=== PATIENT | male | born 1935 | race Caucasian/White ===

== ENCOUNTER 2017-10-13 10:38 | Inpatient (IN) ==
[2017-10-13] MEDS ORDERED: Ondansetron 4 MG/2 ML VIAL IVP PRN (13:55)
[2017-10-13] MEDS ORDERED: Naloxone 0.4 MG/ML INJ IVP PRN (13:55)
[2017-10-13] MEDS ORDERED: *HR* Metoprolol 5 MG/5 ML VIAL IVP PRN (13:55)
--- NOTE | 2017-10-13 14:16 | General Surg History&Physical ---
<RanjithSamantha Fady - Last Filed: 10/13/17 14:14> Date of Encounter: 10/13/17 Time of Encounter: 14:14 Assessment and Plan (1) Mass in rectum Current Visit: Yes Status: Acute The assessment and plan as outlined above was discussed with the patient and/or family members who expressed understanding and agreement. All questions were answered. CT abdomen and pelvis without IV; oral only contrast NPO serial labs serial abdominal exams IV fluids (2) Chronic kidney disease (CKD) Current Visit: Yes Status: Acute The assessment and plan as outlined above was discussed with the patient and/or family members who expressed understanding and agreement. All questions were answered. Stage III according to msot recent GFR. Most recent labs in [facility] with GFR of 46 and creatinine 1.48 (which appears close to his baseline) Will proceed with CT oral and rectal only given above. Serial labs Qualifiers: Chronic kidney disease stage: stage 3 (moderate) Qualified Code(s): N18.3 - Chronic kidney disease, stage 3 (moderate) (3) HTN, goal below 130/80 Current Visit: Yes Status: Acute The assessment and plan as outlined above was discussed with the patient and/or family members who expressed understanding and agreement. All questions were answered. Continue home meds. History of Present Illness Chief complaint: changes in bowel habits (constipationa nd diarrhea) HPI: Please see H&P from ECW. Hard copies placed on hard chart and medical records. Past Med Surg Social Fam HX - Past Medical History Medical history: hyperlipidemia, hypertension Psychiatric history: no psych history - Social History Smoking Status: Former smoker Smokeless Tobacco Status: No Alcohol use: none Drug use: none - Family History Mother Living Status: Age at : 83 Cause of : breast ca Hx Family Cancer: Yes (breast ca) Father Living Status: Age at : 57 Cause of : heart problems Hx Family Cardiac Disorders: Yes Medications and Allergies Lactobacillus Combination No.8 [Adult Probiotic] 1 cap PO DAILY 10/13/17 [ History] Polyethylene Glycol 3350 [MiraLAX Powder Bulk 17.9 Oz] 1 scoop PO DAILY [History] Pravastatin Sodium [Pravachol] 40 mg PO DAILY 10/13/17 [History] Ranitidine HCl [Zantac] 150 mg PO DAILY 10/13/17 [History] amLODIPine [Norvasc] 5 mg PO DAILY 10/13/17 [History] 3 Allergy/AdvReac Type Severity Reaction Status Date / Time Penicillins [PCN] Allergy Hives Verified 10/13/17 14:24 Review of Systems All systems PM: A 10-system review of systems was performed and is negative for pertinent findings except as documented above in the HPI. General Surgery Exam Initial Vital Signs Temp Pulse Resp BP Pulse Ox 97.6 F 80 16 165/73 97 10/13/17 14:02 10/13/17 14:02 10/13/17 14:02 10/13/17 14:02 10/13/17 14:02 Results - Labs All other labs normal. <Veronica Cannon - Last Filed: 10/14/17 05:51> Date of Encounter: 10/13/17 Assessment and Plan (1) Chronic kidney disease (CKD) Current Visit: Yes Status: Chronic The assessment and plan as outlined above was discussed with the patient and/or family members who expressed understanding and agreement. All questions were answered. Qualifiers: Chronic kidney disease stage: stage 3 (moderate) Qualified Code(s): N18.3 - Chronic kidney disease, stage 3 (moderate) (2) HTN, goal below 130/80 Current Visit: Yes Status: Chronic The assessment and plan as outlined above was discussed with the patient and/or family members who expressed understanding and agreement. All questions were answered. (3) Mass in rectum Current Visit: Yes Status: Acute The assessment and plan as outlined above was discussed with the patient and/or family members who expressed understanding and agreement. All questions were answered. discussed with patient and in office earlier today, patient having obstructive symptoms will plan CT chest/abd/pelvis and will do with oral and rectal contrast npo currently prn pain control gi/dvt prophylaxis will need tissue biopsy as well concerned due to obstructive symptoms patient will not be able to tolerate a bowel prep for an attempted colonoscopy await ct results History of Present Illness HPI: Mr. Prado is a 82 year old male with symptoms of rectal bleeding, rectal pressure, frequent incomplete stools daily, alternating diarrhea and constipation since this past July 2017. He has bright red blood per rectum with bm's. He has fecal leakage and incontinence since this past july. Patient without any previous colonoscopy. No [facility] colon/rectal cancer. Has only had about a 3-4 lb weight loss over the last few months, denies clothes fitting any differently. Denies abdominal pain, nausea or emesis. States tolerates meals without abdominal bloating, nausea or abdominal pain. No fevers, chills or night sweats. Past Med Surg Social Fam HX - Past Medical History Source: patient Medical history: GERD, hyperlipidemia, hypertension Psychiatric history: no psych history - Past Surgical History Surgical History: no surgical history Review of Systems All systems PM: reviewed and no additional remarkable complaints except as stated All systems PM: A 10-system review of systems was performed and is negative for pertinent findings except as documented above in the HPI. General Surgery Exam Initial Vital Signs Temp Pulse Resp BP Pulse Ox 97.6 F 80 16 165/73 97 10/13/17 14:02 10/13/17 14:02 10/13/17 14:02 10/13/17 14:02 10/13/17 14:02 - General physical appearance well nourished, no distress, no pain - Eyes PERRL, normal ocular movement - ENT normal mucosa, normocephalic - Neck no bruits, trachea midline - Respiratory normal expansion, clear to auscultation - Cardiovascular Cardiovascular exam: Present: RRR - Abdomen Abdomen general surgery: Present: bowel sounds present, soft, non tender, distended. Absent: guarding, rebound - Rectum Rectum: Present: other (palpable low rectal mass, nonmobile, friable with bleeding) - Integumentary Integumentary general surgery: Present: warm and dry, no abnormal pigmentation - Neurologic Present: CN 2-12 grossly intact - Musculoskeletal Present: normal gait, normal posture - Psychiatric Psychiatric general surgery: Present: A&Ox3, speech is normal Results - Labs 10/13/17 14:38 10/13/17 14:38 Abnormal lab results MPV 9.2 fL (9.4-12.4) L 10/13/17 14:38 Sodium 135 mEq/L (136-145) L 10/13/17 14:38 Est GFR (Non-Af Amer) 59 (> 60) L 10/13/17 14:38 Glucose 107 mg/dL (70-105) H 10/13/17 14:38 Diabetes panel 10/13/17 10/13/17 Range/Units 14:38 14:38 Sodium 135 L (136-145) mEq/L Potassium 3.9 (3.5-5.1) mEq/L Chloride 100 (98-107) mEq/L Carbon Dioxide 28 (23-29) mEq/L BUN 14 (8-23) mg/dL Creatinine 1.18 (0.70-1.30) mg/dL Glucose 107 H (70-105) mg/dL Calcium 9.3 (8.6-10.3) mg/dL AST 23 (13-39) Units/L ALT 14 (7-52) Units/L Alkaline Phosphatase 72 (34-104) Units/L Albumin 4.1 (3.5-5.7) g/dL Calcium panel 10/13/17 10/13/17 Range/Units 14:38 14:38 Calcium 9.3 (8.6-10.3) mg/dL Phosphorus 2.8 (2.7-4.5) mg/dL Albumin 4.1 (3.5-5.7) g/dL Pituitary panel 10/13/17 Range/Units 14:38 Sodium 135 L (136-145) mEq/L Potassium 3.9 (3.5-5.1) mEq/L Chloride 100 (98-107) mEq/L Carbon Dioxide 28 (23-29) mEq/L BUN 14 (8-23) mg/dL Creatinine 1.18 (0.70-1.30) mg/dL Glucose 107 H (70-105) mg/dL Calcium 9.3 (8.6-10.3) mg/dL Adrenal panel 10/13/17 10/13/17 Range/Units 14:38 14:38 Sodium 135 L (136-145) mEq/L Potassium 3.9 (3.5-5.1) mEq/L Chloride 100 (98-107) mEq/L Carbon Dioxide 28 (23-29) mEq/L BUN 14 (8-23) mg/dL Creatinine 1.18 (0.70-1.30) mg/dL Glucose 107 H (70-105) mg/dL Calcium 9.3 (8.6-10.3) mg/dL Total Bilirubin 0.9 (0.3-1.0) mg/dL AST 23 (13-39) Units/L ALT 14 (7-52) Units/L Alkaline Phosphatase 72 (34-104) Units/L Albumin 4.1 (3.5-5.7) g/dL All other labs normal. - Attending Attestation I have personally performed a face to face evaluation on this patient. I have reviewed and agree with the care plan. History and Exam by me shows:
[2017-10-13 14:54] LABS: Basophils % 0.6 %; Eosinophils # 0.1 K/mcL (0.0-0.6); Eosinophils % 1.6 %; Hematocrit 40.2 % (37.5-50.1); Hemoglobin 13.8 g/dL (12.9-16.9); Immature Granulocytes % 0.2 % (0-4); Lymphocytes % 18.8 %; Mean Corpuscular HGB Conc 34.3 g/dL (31.6-35.5); Mean Corpuscular Hemoglobin 32.8 pg (28.0-33.3); Mean Corpuscular Volume 95.5 fL (83.0-100.0); Mean Platelet Volume 9.2 fL (9.4-12.4); Monocytes # 0.6 K/mcL (0.0-1.3); Monocytes % 11.4 %; Neutrophils # 3.4 K/mcL (1.6-8.9); Platelet Count 251 K/mcL (140-400); Red Blood Count 4.21 M/mcL (4.19-5.50); Red Cell Distribution Width 12.5 % (11.5-14.5); Segmented Neutrophils % 67.4 %
[2017-10-13] MEDS: 0.9 % Sodium Chloride 1,000 ML IVC SCH (14:55)
[2017-10-13 14:56] LABS: Prothrombin Time 10.8 Seconds (9.4-12.1)
[2017-10-13 15:03] LABS: BUN/Creatinine Ratio 12 (6-26); Blood Urea Nitrogen 14 mg/dL (8-23); Calcium 9.3 mg/dL (8.6-10.3); Carbon Dioxide 28 mEq/L (23-29); Chloride 100 mEq/L (98-107); Glucose 107 mg/dL (70-105); Osmolality,Calculated 281 (280-300); Potassium 3.9 mEq/L (3.5-5.1); Sodium 135 mEq/L (136-145); eGFR For African Americans > 60 (> 60); eGFR For Non-African Americans 59 (> 60)
[2017-10-13 15:04] LABS: Albumin 4.1 g/dL (3.5-5.7); Albumin/Globulin Ratio 1.5 (1.1-2.2); Bilirubin,Direct 0.1 mg/dL (0.0-0.2); Bilirubin,Indirect 0.8 mg/dL (0.0-1.2); Bilirubin,Total 0.9 mg/dL (0.3-1.0); Globulin 2.8 g/dL (2.4-3.5); Magnesium 1.9 mg/dL (1.6-2.6); Phosphorous 2.8 mg/dL (2.7-4.5); Total Protein 6.9 g/dL (6.4-8.9)
[2017-10-13 15:39] LABS: Carcinoembryonic Antigen 4.4 ng/mL (Less than 5.0)
[2017-10-13] MEDS: *HR* Heparin 5,000 UNIT/ML VIAL SQ SCH (17:49)
[2017-10-13] MEDS: MORPHINE SUL Oral CONC 10 MG/0.5 ML ORAL.SYG SL PRN (20:22)
[2017-10-14] MEDS: *HR* Heparin 5,000 UNIT/ML VIAL SQ SCH ×2 (05:20→16:54)
[2017-10-14] MEDS: amLODIPine 5 MG TABLET PO SCH (07:35)
[2017-10-14] MEDS: Pantoprazole 40 MG VIAL IVP SCH (07:35)
[2017-10-14] MEDS: 0.9 % Sodium Chloride 1,000 ML IVC SCH (10:52)
[2017-10-14] MEDS ORDERED: *HR* Midazolam HCl 5 MG/5 ML VIAL IVP ONE (16:19)
[2017-10-14] MEDS ORDERED: *HR* FentaNYL (PF) 100 MCG/2 ML VIAL ONE (16:20)
[2017-10-14] MEDS ORDERED: *HR* Promethazine 25 MG/ML VIAL ONE (16:20)
[2017-10-14] MEDS ORDERED: Simethicone 40 MG/0.6 ML MLS IR ONE (16:34)
[2017-10-14] MEDS ORDERED: *HR* FentaNYL (PF) 100 MCG/2 ML VIAL IVP ONE (16:34)
[2017-10-14] MEDS ORDERED: *HR* Midazolam HCl 2 MG/2 ML VIAL IVP ONE (16:34)
--- NOTE | 2017-10-14 16:37 | Pre-Sedation Evaluation ---
Pre-sedation evaluation - Pre-sedation checklist Date of procedure: 10/14/17 Procedure: endoscopy Recent Vitals: Last Vital Signs Temp 98.1 F 10/14/17 16:19 Pulse 72 10/14/17 16:19 Resp 14 10/14/17 16:19 BP 155/66 10/14/17 16:19 Pulse Ox 95 10/14/17 16:19 H&P (including ROS) documented in medical record: Yes Previous reaction to sedatives/anesthetics: No Dietary Status: Clear fluids after Midnight Dentition: dentures removed ASA Classification *see protocol: CLASS III-Severe systemic disease Plan of Care: Pt appropriate candidate for procedure/moderate/conscious sedation , Risks/benefits of procedure/sedation discussed w/ patient/family
--- NOTE | 2017-10-14 17:09 | General Surgery Progress Note ---
Date of Encounter: 10/14/17 Time of Encounter: 17:06 - Assessment and Plan (1) Chronic kidney disease (CKD) Current Visit: Yes Status: Chronic monitor Cr Qualifiers: Chronic kidney disease stage: stage 3 (moderate) Qualified Code(s): N18.3 - Chronic kidney disease, stage 3 (moderate) (2) HTN, goal below 130/80 Current Visit: Yes Status: Chronic controlled, continue po meds (3) Mass in rectum Current Visit: Yes Status: Acute patient flex sig shows rectal mass down to anal verge essentially but bulk of tumor appears to be in rectum - circumferential, nearly obstructing CT report discussed with patient and family will plan diverting colostomy tuesday ok for clears until sat night Subjective Patient reports: no new complaints, tolerating liquids well, flatus, bowel movement (minimal) Objective Vital Signs - Last 8 Hours Temp Pulse Resp BP Pulse Ox 10/14/17 17:00 63 16 111/43 98 10/14/17 16:55 59 16 101/44 98 10/14/17 16:50 61 16 96/37 97 10/14/17 16:45 16 100/52 97 10/14/17 16:40 75 16 161/75 97 10/14/17 16:36 97.9 F 82 16 161/75 96 10/14/17 16:19 98.1 F 72 14 155/66 95 10/14/17 10:38 98.0 F 68 16 147/70 96 Intake and Output 10/14/17 10/14/17 10/14/17 07:59 15:59 23:59 Intake Total 120 / 120 1000 / 1000 Output Total 0 / 0 Balance 120 / 120 1000 / 1000 Intake: IV Fluids 1000 / 1000 0.9 % Sodium Chloride 1,000 ML 1000 / 1000 @ 50 mls/hr IVC .Q20H GARY Rx#: [id number] Oral 120 / 120 0 / 0 Output: Urine 0 / 0 Other: Meal Lunch Percent of Meal Consumed 0% # Bowel Movements 1 Weight 64.11 kg Patient Weight 10/14/17 23:59 Weight 64.11 kg - General physical appearance well developed, no distress - Eyes PERRL, normal ocular movement - ENT normal mucosa, normocephalic - Neck Neck exam: trachea midline - Respiratory normal expansion, normal respiratory effort - Abdomen Abdomen: Present: bowel sounds present, soft, non tender. Absent: guarding, rebound - Rectum other (see flex sig report) - Integumentary no rash - Neurologic CN 2-12 grossly intact - Musculoskeletal normal posture - Psychiatric oriented to time, oriented to person, oriented to place, speech is normal, memory intact - Labs 10/13/17 14:38 10/13/17 14:38 - VTE Documentation of Mechanical Device: Intermittent pneumatic compression device Consult Discharge Plan - Plan Referrals: Ranjith Lacey DO [Primary Care Provider] -
[2017-10-15] MEDS: 0.9 % Sodium Chloride 1,000 ML IVC SCH (05:25)
[2017-10-15] MEDS: *HR* Heparin 5,000 UNIT/ML VIAL SQ SCH ×2 (05:25→18:16)
--- NOTE | 2017-10-15 08:29 | Urology - Consult Note ---
Date of Encounter: 10/15/17 Time of Encounter: 08:27 - Assessment and Plan (1) Mass in rectum Current Visit: Yes Status: Acute Assessment and plan: I discussed with the patient the procedure that I would be performing tomorrow of cystoscopy with either bilateral ureteral catheter placements or stent placements. Patient was agreeable to this and an informed consent was obtained and placed in the chart. Patient and family member had no further questions Urology CN:HPI Consult date: 10/15/17 Reason for consult Urology: Other (rectal mass) Requesting physician: Veronica Cannon History of present illness: Aryan is an 82-year-old male with a history of kidney admitted secondary to almost completely obstructing rectal mass. Patient is known to me for undergoing cystoscopy for hematuria workup in 2012. This workup was negative. I was asked to evaluate the patient secondary to needing ureteral catheters for surgery tomorrow. Patient with no complaints from a urology standpoint at this time. He is voiding well. Past Med Surg Social Fam HX - Past Medical History Medical history: GERD, hyperlipidemia, hypertension Psychiatric history: no psych history - Past Surgical History Surgical History: no surgical history - Social History Smoking Status: Former smoker Smokeless Tobacco Status: No Alcohol use: none Drug use: none - Family History Mother Living Status: Age at : 83 Cause of : breast ca Hx Family Cancer: Yes (breast ca) Father Living Status: Age at : 57 Cause of : heart problems Hx Family Cardiac Disorders: Yes Medications and Allergies Lactobacillus Combination No.8 [Adult Probiotic] 1 cap PO DAILY 10/13/17 [ History] Polyethylene Glycol 3350 [MiraLAX Powder Bulk 17.9 Oz] 1 scoop PO DAILY [History] Pravastatin Sodium [Pravachol] 40 mg PO DAILY 10/13/17 [History] Ranitidine HCl [Zantac] 150 mg PO DAILY 10/13/17 [History] amLODIPine [Norvasc] 5 mg PO DAILY 10/13/17 [History] 3 Allergy/AdvReac Type Severity Reaction Status Date / Time Penicillins [PCN] Allergy Hives Verified 10/13/17 14:24 Review of Systems - Constitutional no chills, no fever(s) - EENT Nose, mouth and throat: no dizziness - Cardiovascular no chest pain - Respiratory no cough - Gastrointestinal abdominal pain - Musculoskeletal no back pain Exam Initial Vital Signs Temp Pulse Resp BP Pulse Ox 97.6 F 80 16 165/73 97 10/13/17 14:02 10/13/17 14:02 10/13/17 14:02 10/13/17 14:02 10/13/17 14:02 - General physical appearance Present: well developed - Eyes Present: normal ocular movement. Absent: icteric - Neck Present: no lymphadenopathy - Respiratory Present: normal respiratory effort - Cardiovascular Cardiovascular exam IM: RRR - Abdomen Abdomen: Present: soft. Absent: suprapubic tenderness Urology Results - Labs 10/13/17 14:38 10/13/17 14:38 Abnormal lab results MPV 9.2 fL (9.4-12.4) L 10/13/17 14:38 Sodium 135 mEq/L (136-145) L 10/13/17 14:38 Est GFR (Non-Af Amer) 59 (> 60) L 10/13/17 14:38 Glucose 107 mg/dL (70-105) H 10/13/17 14:38 All other labs normal. - Imaging CT scan - abdomen: image reviewed CT scan - pelvis: image reviewed Consult Discharge Plan - Plan Referrals: Ranjith Lacey DO [Primary Care Provider] -
[2017-10-15] MEDS: amLODIPine 5 MG TABLET PO SCH (09:20)
[2017-10-15] MEDS: Pantoprazole 40 MG VIAL IVP SCH (09:20)
--- NOTE | 2017-10-15 10:07 | General Surgery Progress Note ---
Date of Encounter: 10/15/17 Time of Encounter: 10:04 - Assessment and Plan (1) Mass in rectum Current Visit: Yes Status: Acute Plan for robotic diverting colostomy and mucous fistula. Case and scheduled for 10/16/17. Dr. Cannon is aware of the operation. Subjective Patient reports: other (I had a 15 minute conversation with the patient and his daughter. We discussed the potentials options in regards to surgery. I reinforced the idea that he needs diversion followed by neoadjuvant chemotherapy. He understands he had no further questions for me afterwards. His daughter was also understanding.) Objective Vital Signs - Last 8 Hours Temp Pulse Resp BP Pulse Ox 10/15/17 07:49 98.1 F 64 16 141/63 95 10/15/17 04:03 97.9 F 59 14 129/61 94 Intake and Output 10/14/17 10/15/17 10/15/17 23:59 07:59 15:59 Intake Total 0 / 0 1000 / 1000 1080 / 1080 Output Total 0 / 0 0 / 0 Balance 0 / 0 1000 / 1000 1080 / 1080 Intake: IV Fluids 1000 / 1000 0.9 % Sodium Chloride 1,000 ML 1000 / 1000 @ 50 mls/hr IVC .Q20H GARY Rx#: [id number] Oral 0 / 0 0 / 0 1080 / 1080 Output: Urine 0 / 0 0 / 0 Other: Meal NPO Percent of Meal Consumed 0% # Voids 1 # Bowel Movements 0 Weight 64.11 kg Patient Weight 10/15/17 23:59 Weight 64.11 kg - General physical appearance no distress - Eyes PERRL, normal ocular movement - Neck Neck exam: trachea midline - Respiratory normal expansion - Cardiovascular Cardiovascular exam: Present: RRR - Abdomen Abdomen: Present: soft, non tender - Neurologic CN 2-12 grossly intact, normal sensation - Labs 10/13/17 14:38 10/13/17 14:38 - VTE Documentation of Mechanical Device: Intermittent pneumatic compression device Consult Discharge Plan - Plan Referrals: Ranjith Lacey DO [Primary Care Provider] -
[2017-10-15] MEDS: MORPHINE SUL Oral CONC 10 MG/0.5 ML ORAL.SYG SL PRN ×3 (14:37→22:42)
[2017-10-16] MEDS: 0.9 % Sodium Chloride 1,000 ML IVC SCH ×3 (01:29→20:50)
[2017-10-16] MEDS: *HR* Heparin 5,000 UNIT/ML VIAL SQ SCH ×2 (04:58→18:35)
[2017-10-16] MEDS ORDERED: *HR* Enoxaparin 40 MG/0.4 ML SYRINGE SQ SCH (06:00)
--- NOTE | 2017-10-16 07:09 | Anesthesia Evaluation PreOp ---
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 Any Significant HX Other Medical History: Renal (CKD) Anesthesia History: No Prior Anesthetic Complications Alcohol Use: none Drug use: none Medications and Allergies Lactobacillus Combination No.8 [Adult Probiotic] 1 cap PO DAILY 10/13/17 [ History] Polyethylene Glycol 3350 [MiraLAX Powder Bulk 17.9 Oz] 1 scoop PO DAILY [History] Pravastatin Sodium [Pravachol] 40 mg PO DAILY 10/13/17 [History] Ranitidine HCl [Zantac] 150 mg PO DAILY 10/13/17 [History] amLODIPine [Norvasc] 5 mg PO DAILY 10/13/17 [History] 3 Allergy/AdvReac Type Severity Reaction Status Date / Time Penicillins [PCN] Allergy Hives Verified 10/13/17 14:24 - Meds/Allergy Pre-op Review Medications Reviewed: Yes Allergies Reviewed: Yes Beta Blockers on Current Med List: No Anesthesia Results - Labs 10/13/17 14:38 10/13/17 14:38 - Imaging EKG: pending Anesthesia Exam O2 Sat O2 Sat by Pulse Oximetry 94 O2 Sat by Pulse Oximetry 95 O2 Sat by Pulse Oximetry 96 O2 Sat by Pulse Oximetry 96 O2 Sat by Pulse Oximetry 97 O2 Sat by Pulse Oximetry 95 Vital Signs Temp Pulse Resp BP Pulse Ox 97.6 F 80 16 165/73 97 10/13/17 14:02 10/13/17 14:02 10/13/17 14:02 10/13/17 14:02 10/13/17 14:02 Height: 5'10 Weight: 141 lbs NPO (# of Hours): MN Pain Scale: 0 - HEENT Pupil (Motor): Pupils equal, EOMI Mallampati: II Teeth: Edentulous Oral Opening: Greater than 3 - RAILWAY SIGNAL OPERATOR LOC: Oriented RAILWAY SIGNAL OPERATOR Motor: Normal RUE, Normal LUE, Normal RLE, Normal LLE, Normal Face RAILWAY SIGNAL OPERATOR Sensory: Normal: RUE, LUE, RLE, LLE, Face - Cardiac Rhythm: Regular Murmur: None JVD: No Carotid Bruit: No - Pulmonary Breath Sounds: bilateral Clear Respiratory Effort: Symmetrical Anesthesia Assess/Plan ASA Score: 3 (HTN CKD Extreme of Age) Modified Francine Scale for Level of Consciousness: Cooperative, oriented, and tranquil Anesthetic Plan: General, Regional Monitoring Plan: Standard Monitors Recovery Plan: PACU (Discussed GA and TAP Block for post op pain,agrees to proceed)
[2017-10-16] MEDS ORDERED: Lidocaine -MPF 2% 2 ML VIAL ONE (07:22)
[2017-10-16] MEDS ORDERED: *HR* Rocuronium Bromide 50 MG/5 ML VIAL ONE (07:22)
[2017-10-16] MEDS ORDERED: Ondansetron 4 MG/2 ML VIAL ONE (07:22)
[2017-10-16] MEDS ORDERED: *HR* FentaNYL (PF) 100 MCG/2 ML VIAL ONE (07:22)
[2017-10-16] MEDS ORDERED: *HR* Propofol 200 MG/20 ML VIAL IVP ONE (07:22)
[2017-10-16] MEDS ORDERED: *HR* Succinylcholine 200 MG/10 ML VIAL IVP ONE (07:22)
[2017-10-16] MEDS ORDERED: Dexamethasone 4 MG/ML VIAL ONE (07:22)
[2017-10-16] MEDS ORDERED: Acetaminophen IV 1,000 MG/100 ML INFUS..BTL ONE (07:29)
[2017-10-16] MEDS ORDERED: Famotidine 20 MG/2 ML VIAL ONE (07:29)
[2017-10-16] MEDS ORDERED: Clindamycin 900 MG/50 ML 900 MG/50 ML IV.SOLN IVPB ONE (08:18)
[2017-10-16] MEDS ORDERED: EPHEDrine 50 MG/ML VIAL ONE (08:36)
[2017-10-16] MEDS ORDERED: Neostigmine Methylsulfate 3 MG/3 ML SYRINGE ONE (09:29)
--- NOTE | 2017-10-16 10:02 | Operative Note ---
Date of procedure: 10/16/17 Pre-op diagnosis: obstructing rectal mass Post-op diagnosis: same Procedure: Laparoscopic sigmoid colostomy with mucus fistula Complications: none immediate Anesthesia: GETA, local Local Anesthetics: 0.5% Sensorcaine HCL SubQ (cc) Surgeon: Veronica Cannon Was there an food and beverage assistant present: Yes Corporate Pilot: Ximena Chong Estimated blood loss (cc): 5 Specimen: peritoneal mets Condition: stable Disposition: PACU Procedure in Detail: Patient was brought into the operating suite and placed supine on the operating table. Sign in was performed and everyone was in agreement. Anesthesia was induced and patient was endotracheally intubated by anesthesia without incident. The bilateral arms were tucked. The abdomen was shaved and prepped and draped in the the usual sterile fashion. Time out was performed and everyone was in agreement. A supraumbilical incision was made through the skin into the subcutaneous tissue with an 11# blade. Towel clamps were placed on either side of the umbilicus for retraction and S retractors were used to dissect down to the anterior abdominal wall. A veress needle was placed through the incision and the abdomen was insufflated. The abdomen was entered with a 5 mm 0 degree lapaproscope on a 5 mm Xcel trocar. There was no obvious injury to bowel or bleeding under the entry point. A 5 mm trocar was placed in right lateral mid rectus position several cm below the level of the umbilicus. A third 5 mm port was placed in the right lower quadrant, each port was placed under direct visualization after the skin was incised with an 11# blade. 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 The liver itself did not have any obvious lesions and none were obvious on the mesentary or apparent bowel/colon. Several bites of what appeared to be metastatic disease on the peritoneum above the liver were taken with a laparoscopic grasper and put of to the back table for pathology. The sigmoid was located and was adhesed to the left lateral side wall. The adhesions were taken down with laparoscopic scissors. The sigmoid and left colon were taken down off the lateral side wall at the white line of tolt with the scissors and gentle blunt dissection. The left ureter was located and kept out of harms way. Once enough colon was free that it reached the anterior abdominal wall a stewart was placed on the colon. A circular incision through the skin in the left lower quadrant lateral rectus position below the umbilicus level was made with a 15# blade. The skin and subcutaneous tissue was excised with the bovie. The anterior fascia on the rectus was incised longitudinally and a cruciate incision was made in the fascia with the bovie. The rectus muscle was split with a George and the posterior rectus fascia was opened with the bovie and the opening elongated to accomodate about 2.5 finger breadths. A stewart was placed through the abdominal wall incision grasping the colon at the site previous marked with the laparoscopic stewart and the colon pulled up through the abdominal wall. An opening in the mesentery beneath the colon was made with a bovie and a george placed through this. The colon was transected with a linear SUKHJINDER 75 mm stapler using a blue load. The lower half of the mucus fistula was created first. A corner of the distal colon at the staple line was transected with curved chavarria scissors and using full thickness bites of the colon with 3-0 vicryl interrupted stitches, the inferior aspect of the distal colon was sutured to subcuticular skin. The proximal colon/colostomy was then created. Two babcocks were placed on the suture line and it was transected with heavy chavarria scissors. The colostomy was created using full thickness colon bites with 3-0 vicryl interrupted sutures secured circumferentially to the subcuticular skin. The inferior aspect of the colostomy was secured to the the proximal mucus fistula with full thickness bites using 3-0 vicryl interrupted stitches. The three ports sites were closed at the skin level with 4-0 monocryl interrupted stitches. 20cc 0.5% marcaine was injected into the subcutaneous tissue above each port site and the colostomy. Steri-strips were applied to the closed wounds. Allkare skin prep was applied around the colostomy/mucus fistula skin and the faceplate and bag were applied. All lap and instrument counts were correct at the the end of the case. The patient tolerated the procedure well. He was awoken by anesthesia and extubated and taken to pacu in stable condition.
[2017-10-16] MEDS ORDERED: *HR* Morphine 10 MG/ML VIAL ONE (10:24)
--- NOTE | 2017-10-16 10:39 | Anesthesia Evaluation Post Op ---
Date of Encounter: 10/16/17 Time of Encounter: 10:40 - Vital Signs Vital Signs: Vital Signs/O2 Sat/Glucose, Most Current Temp Pulse Resp BP Pulse Ox 10/16/17 10:32 97.6 F 66 18 127/63 97 10/16/17 10:22 69 20 130/67 98 10/16/17 10:12 71 20 130/65 98 10/16/17 10:02 97.9 F 76 18 132/67 94 - Lungs Lungs: Clear Ascult./Percussion - Airway Airway: Non-obstructed - Cardiovascular Regular Rate - Mental Status Mental Status: Alert & Oriented, Answers Appropriately - Pain Pain Scale: 2 - Nausea Vomiting Nausea Vomiting: Not Present - Hydration Hydration: Ice chips - Discharge PostOp Status: Transfer Patient to floor
[2017-10-16] MEDS ORDERED: Ondansetron 4 MG/2 ML VIAL IVP PRN (11:13)
[2017-10-16] MEDS ORDERED: *HR* Metoprolol 5 MG/5 ML VIAL IVP PRN (11:13)
[2017-10-16] MEDS ORDERED: Naloxone 0.4 MG/ML INJ IVP PRN (11:13)
[2017-10-16] MEDS: MORPHINE SUL Oral CONC 10 MG/0.5 ML ORAL.SYG SL PRN ×2 (11:20→18:34)
[2017-10-16] MEDS ORDERED: Levofloxacin 500 MG/100 ML 500 MG/100 ML BAG IVPB ONE ×2 (12:00→14:00)
[2017-10-16] MEDS: Acetaminophen 325 MG TABLET PO PRN ×2 (12:59→20:50)
[2017-10-17] MEDS: MORPHINE SUL Oral CONC 10 MG/0.5 ML ORAL.SYG SL PRN ×2 (02:39→08:42)
[2017-10-17] MEDS: Acetaminophen 325 MG TABLET PO PRN (05:53)
[2017-10-17] MEDS: *HR* Heparin 5,000 UNIT/ML VIAL SQ SCH ×2 (05:53→17:18)
[2017-10-17 07:35] LABS: Hematocrit 35.2 % (37.5-50.1); Immature Granulocytes % 0.4 % (0-4); Lymphocytes # 0.6 K/mcL (0.6-4.6); Lymphocytes % 6.8 %; Mean Corpuscular HGB Conc 34.1 g/dL (31.6-35.5); Mean Corpuscular Volume 96.7 fL (83.0-100.0); Mean Platelet Volume 9.6 fL (9.4-12.4); Monocytes # 0.8 K/mcL (0.0-1.3); Monocytes % 9.4 %; Neutrophils # 6.8 K/mcL (1.6-8.9); Platelet Count 217 K/mcL (140-400); Red Blood Count 3.64 M/mcL (4.19-5.50); Red Cell Distribution Width 12.7 % (11.5-14.5); Segmented Neutrophils % 83.4 %
[2017-10-17 07:49] LABS: BUN/Creatinine Ratio 11 (6-26); Blood Urea Nitrogen 11 mg/dL (8-23); Calcium 8.7 mg/dL (8.6-10.3); Carbon Dioxide 27 mEq/L (23-29); Chloride 103 mEq/L (98-107); Glucose 139 mg/dL (70-105); Osmolality,Calculated 282 (280-300); Potassium 4.3 mEq/L (3.5-5.1); Sodium 135 mEq/L (136-145); eGFR For African Americans > 60 (> 60); eGFR For Non-African Americans > 60 (> 60)
[2017-10-17] MEDS: Pantoprazole 40 MG VIAL IVP SCH (08:42)
[2017-10-17] MEDS: amLODIPine 5 MG TABLET PO SCH (08:42)
--- NOTE | 2017-10-17 10:01 | General Surgery Progress Note ---
<RanjithSamantha Fady - Last Filed: 10/17/17 10:13> Date of Encounter: 10/17/17 Time of Encounter: 10:00 - Assessment and Plan (1) Mass in rectum Current Visit: Yes Status: Acute Date of procedure: 10/16/17 Pre-op diagnosis: obstructing rectal mass Post-op diagnosis: same Procedure: Laparoscopic sigmoid colostomy with mucus fistula Complications: none immediate Anesthesia: GETA, local Surgeon: Veronica Cannon Estimated blood loss (cc): 5 POD #1 as above. He states his abdominal discomfort is overall controlled. He has been out of bed and ambulating in the room. Denies n/v. He reports that he has had a small amount of output in his appliance and a smear per rectum. He notes flatus in his appliance. His bowel sounds are active. Plan: continue supportive care and discomfort management. Will add scheduled ibuprofen for 2 days for discomfort management and continue PRN narcotics. Continue GRI and DVT prophylaxis continue Colace stop IV fluids regular diet ambulate is tolerated but at least 3 times daily consult to wound care for new colostomy teaching repeat a.m. labs (2) Chronic kidney disease (CKD) Current Visit: Yes Status: Chronic Stable. We'll continue to follow. Repeat a.m. labs Qualifiers: Chronic kidney disease stage: stage 3 (moderate) Qualified Code(s): N18.3 - Chronic kidney disease, stage 3 (moderate) (3) HTN, goal below 130/80 Current Visit: Yes Status: Chronic Resuming PO home meds. We'll continue to follow Subjective Patient reports: no new complaints, feels better, still having pain, pain is less, tolerating liquids well, tolerating a regular diet, voiding w/o difficulty , flatus, bowel movement (small amount of output reported from patient), afebrile Objective Vital Signs - Last 8 Hours Temp Pulse Resp BP Pulse Ox 10/17/17 07:48 98.9 F 65 16 116/52 96 10/17/17 04:04 98.3 F 65 18 117/65 96 Intake and Output 10/16/17 10/17/17 10/17/17 23:59 07:59 15:59 Intake Total 1480 / 1480 0 / 0 Output Total 100 / 100 300 / 300 Balance 1380 / 1380 -300 / -300 Intake: IV Fluids 1000 / 1000 0.9 % Sodium Chloride 1,000 ML 1000 / 1000 @ 50 mls/hr IVC .Q20H [facility] Rx#: [id number] Oral 480 / 480 0 / 0 Output: Urine 100 / 100 300 / 300 Other: Meal Dinner Percent of Meal Consumed 50% - General physical appearance well developed, well nourished, no distress - Neck Neck exam: no bruits, trachea midline, no venous distension - Cardiovascular Cardiovascular exam: Present: RRR, murmurs - Abdomen Abdomen: Present: bowel sounds present, soft, tender (Expected postoperative tenderness), wound (Left upper abdomen colostomy within normal limits. Small amount of bloody bowel sweat noted.) Hernia: none - Incision Incision: Present: clean and dry, intact - Integumentary no growths, no abnormal pigmentation - Neurologic CN 2-12 grossly intact, normal coordination, normal sensation - Musculoskeletal normal gait, normal posture - Psychiatric oriented to time, oriented to person, oriented to place, speech is normal - Labs 10/17/17 07:09 10/17/17 07:09 Diabetes panel 10/17/17 Range/Units 07:09 Sodium 135 L (136-145) mEq/L Potassium 4.3 (3.5-5.1) mEq/L Chloride 103 (98-107) mEq/L Carbon Dioxide 27 (23-29) mEq/L BUN 11 (8-23) mg/dL Creatinine 1.02 (0.70-1.30) mg/dL Glucose 139 H (70-105) mg/dL Calcium 8.7 (8.6-10.3) mg/dL Calcium panel 10/17/17 Range/Units 07:09 Calcium 8.7 (8.6-10.3) mg/dL Pituitary panel 10/17/17 Range/Units 07:09 Sodium 135 L (136-145) mEq/L Potassium 4.3 (3.5-5.1) mEq/L Chloride 103 (98-107) mEq/L Carbon Dioxide 27 (23-29) mEq/L BUN 11 (8-23) mg/dL Creatinine 1.02 (0.70-1.30) mg/dL Glucose 139 H (70-105) mg/dL Calcium 8.7 (8.6-10.3) mg/dL Adrenal panel 10/17/17 Range/Units 07:09 Sodium 135 L (136-145) mEq/L Potassium 4.3 (3.5-5.1) mEq/L Chloride 103 (98-107) mEq/L Carbon Dioxide 27 (23-29) mEq/L BUN 11 (8-23) mg/dL Creatinine 1.02 (0.70-1.30) mg/dL Glucose 139 H (70-105) mg/dL Calcium 8.7 (8.6-10.3) mg/dL - VTE Documentation of Mechanical Device: Intermittent pneumatic compression device Consult Discharge Plan - Plan Referrals: Ranjith Lacey DO [Primary Care Provider] - <Veronica Cannon - Last Filed: 10/17/17 14:01> Date of Encounter: 10/17/17 - Assessment and Plan (1) Chronic kidney disease (CKD) Current Visit: Yes Status: Chronic Qualifiers: Chronic kidney disease stage: stage 3 (moderate) Qualified Code(s): N18.3 - Chronic kidney disease, stage 3 (moderate) (2) HTN, goal below 130/80 Current Visit: Yes Status: Chronic (3) Mass in rectum Current Visit: Yes Status: Acute discussed with patient this is a rectal cancer - awaiting pathology biopsy results from flex sig last tuesday pod 1 colostomy and mucus fistula for obstructing rectal mass peritoneal mets biopsied tolerating diet continue colace and magnesium citrate for bowel clearance, patient is FOS prn pain control ambulate gi/dvt prophylaxis will consult oncology once have pathology results, if pt dc before will have appt made in followup for oncology Subjective Patient reports: bowel movement Narrative: no new complaints pain well controlled, less pelvic pain and discomfort decreased fecal incontinence tolerating regular diet passing flatus but no bm yet Objective Vital Signs - Last 8 Hours Temp Pulse Resp BP Pulse Ox 10/17/17 11:34 98.6 F 82 16 116/52 96 10/17/17 07:48 98.9 F 65 16 116/52 96 Intake and Output 10/16/17 10/17/17 10/17/17 23:59 07:59 15:59 Intake Total 1480 / 1480 0 / 0 480 / 480 Output Total 100 / 100 300 / 300 Balance 1380 / 1380 -300 / -300 480 / 480 Intake: IV Fluids 1000 / 1000 0.9 % Sodium Chloride 1,000 ML 1000 / 1000 @ 50 mls/hr IVC .Q20H [facility] Rx#: [id number] Oral 480 / 480 0 / 0 480 / 480 Output: Urine 100 / 100 300 / 300 Other: Meal Dinner Lunch Percent of Meal Consumed 50% 100% - General physical appearance well developed, well nourished, no distress - Eyes PERRL, normal ocular movement - ENT normal mucosa, normocephalic - Neck Neck exam: trachea midline - Respiratory normal expansion, normal respiratory effort - Cardiovascular Cardiovascular exam: Present: RRR - Abdomen Abdomen: Present: bowel sounds present, soft, tender, wound - Integumentary no growths, no abnormal pigmentation - Neurologic CN 2-12 grossly intact - Musculoskeletal normal posture - Psychiatric oriented to time, oriented to person, oriented to place, speech is normal, memory intact - Additional Exam colostomy and mucus fistula, congested, maroon in color, bloody bowel sweat present - Labs 10/17/17 07:09 10/17/17 07:09 Diabetes panel 10/17/17 Range/Units 07:09 Sodium 135 L (136-145) mEq/L Potassium 4.3 (3.5-5.1) mEq/L Chloride 103 (98-107) mEq/L Carbon Dioxide 27 (23-29) mEq/L BUN 11 (8-23) mg/dL Creatinine 1.02 (0.70-1.30) mg/dL Glucose 139 H (70-105) mg/dL Calcium 8.7 (8.6-10.3) mg/dL Calcium panel 10/17/17 Range/Units 07:09 Calcium 8.7 (8.6-10.3) mg/dL Pituitary panel 10/17/17 Range/Units 07:09 Sodium 135 L (136-145) mEq/L Potassium 4.3 (3.5-5.1) mEq/L Chloride 103 (98-107) mEq/L Carbon Dioxide 27 (23-29) mEq/L BUN 11 (8-23) mg/dL Creatinine 1.02 (0.70-1.30) mg/dL Glucose 139 H (70-105) mg/dL Calcium 8.7 (8.6-10.3) mg/dL Adrenal panel 10/17/17 Range/Units 07:09 Sodium 135 L (136-145) mEq/L Potassium 4.3 (3.5-5.1) mEq/L Chloride 103 (98-107) mEq/L Carbon Dioxide 27 (23-29) mEq/L BUN 11 (8-23) mg/dL Creatinine 1.02 (0.70-1.30) mg/dL Glucose 139 H (70-105) mg/dL Calcium 8.7 (8.6-10.3) mg/dL - Attending Attestation I have personally performed a face to face evaluation on this patient. I have reviewed and agree with the care plan. History and Exam by me shows:
[2017-10-17] MEDS: Ibuprofen 800 MG TABLET PO SCH ×2 (11:49→20:26)
[2017-10-17] MEDS: Levofloxacin 250 MG/50 ML 250 MG/50 ML BAG IVPB SCH (11:50)
--- NOTE | 2017-10-17 17:12 | Electrocardiograph Report ---
[place] [id number] Test Date: 2017-10-16 Pat Name: Aryan Prado Department: 115 Room: 3A Gender: M Pool Cleaner: MARIVEL : 1935 Requested By: Marck Pepe Order Number: [id number] Reading MD: Jose Avelar DO Measurements Intervals [place] Rate: 58 P: 24 GA: 157 QRS: 34 QRSD: 89 T: 77 QT: 394 QTc: 392 Interpretive Statements SINUS BRADYCARDIA MINIMAL VOLTAGE CRITERIA FOR LVH, CONSIDER NORMAL VARIANT Electronically Signed On 10-17-2017 17:11:02 EST by Jose Avelar DO
[2017-10-18] MEDS: Ibuprofen 800 MG TABLET PO SCH ×2 (05:56→14:53)
[2017-10-18] MEDS: *HR* Heparin 5,000 UNIT/ML VIAL SQ SCH ×2 (05:57→17:38)
[2017-10-18 06:44] LABS: Basophils % 0.3 %; Eosinophils # 0.3 K/mcL (0.0-0.6); Eosinophils % 4.3 %; Hematocrit 36.2 % (37.5-50.1); Hemoglobin 12.1 g/dL (12.9-16.9); Immature Granulocytes % 0.3 % (0-4); Lymphocytes # 0.9 K/mcL (0.6-4.6); Lymphocytes % 12.8 %; Mean Corpuscular HGB Conc 33.4 g/dL (31.6-35.5); Mean Corpuscular Hemoglobin 32.5 pg (28.0-33.3); Mean Corpuscular Volume 97.3 fL (83.0-100.0); Mean Platelet Volume 9.8 fL (9.4-12.4); Monocytes # 0.7 K/mcL (0.0-1.3); Monocytes % 9.2 %; Neutrophils # 5.2 K/mcL (1.6-8.9); Platelet Count 233 K/mcL (140-400); Red Blood Count 3.72 M/mcL (4.19-5.50); Red Cell Distribution Width 13.1 % (11.5-14.5); Segmented Neutrophils % 73.1 %
[2017-10-18 06:57] LABS: BUN/Creatinine Ratio 15 (6-26); Blood Urea Nitrogen 17 mg/dL (8-23); Calcium 8.8 mg/dL (8.6-10.3); Carbon Dioxide 30 mEq/L (23-29); Chloride 101 mEq/L (98-107); Glucose 93 mg/dL (70-105); Osmolality,Calculated 281 (280-300); Potassium 4.6 mEq/L (3.5-5.1); Sodium 135 mEq/L (136-145); eGFR For African Americans > 60 (> 60); eGFR For Non-African Americans > 60 (> 60)
[2017-10-18] MEDS: Pantoprazole 40 MG VIAL IVP SCH (09:09)
[2017-10-18] MEDS: amLODIPine 5 MG TABLET PO SCH (09:09)
--- NOTE | 2017-10-18 11:54 | General Surgery Progress Note ---
<Samantha Kasper - Last Filed: 10/18/17 11:52> Date of Encounter: 10/18/17 Time of Encounter: 11:15 - Assessment and Plan (1) Mass in rectum Current Visit: Yes Status: Acute Date of procedure: 10/16/17 Pre-op diagnosis: obstructing rectal mass Post-op diagnosis: same Procedure: Laparoscopic sigmoid colostomy with mucus fistula Complications: none immediate Anesthesia: GETA, local Surgeon: Veronica Cannon Estimated blood loss (cc): 5 POD #2 as above. He states his abdominal discomfort remains overall controlled. He has been out of bed and ambulating in the room, but not the hallway. Denies n /v. He reports that he has had a small amount of output in his appliance and a smear per rectum yesterday. He reports no changes or output today. He again notes flatus in his appliance. His bowel sounds are active. Plan: continue supportive care and discomfort management. Will add scheduled ibuprofen for 2 days for discomfort management and continue PRN narcotics. Continue GRI and DVT prophylaxis continue Colace Repeat mag citrate stop IV fluids continue regular diet ambulate as tolerated but at least 3 times daily; encouraged patient to ambulate in hallways at least TID consult to wound care for new colostomy teaching peritoneal mets biopsied (will consult oncology once have pathology results, if pt dc before will have appt made in followup for oncology) repeat a.m. labs (2) Chronic kidney disease (CKD) Current Visit: Yes Status: Chronic Stable. We'll continue to follow. Repeat a.m. labs Qualifiers: Chronic kidney disease stage: stage 3 (moderate) Qualified Code(s): N18.3 - Chronic kidney disease, stage 3 (moderate) (3) HTN, goal below 130/80 Current Visit: Yes Status: Chronic Resuming PO home meds. We'll continue to follow Subjective Patient reports: still having pain, pain is less, tolerating liquids well, flatus, no bowel movement Narrative: Reports feeling "full and tight" in the abdomen. Has walked in room, but has not walked in hallway stating, "I just didn't really want to walk out there." Nice nausea or vomiting. Objective Vital Signs - Last 8 Hours Temp Pulse Resp BP Pulse Ox 10/18/17 11:11 97.5 F L 63 16 132/66 98 10/18/17 08:41 98.3 F 74 16 130/69 97 10/18/17 04:36 98.3 F 68 16 129/71 94 Intake and Output 10/17/17 10/18/17 10/18/17 23:59 07:59 15:59 Intake Total 240 / 240 240 / 240 Output Total 875 / 875 575 / 575 Balance -635 / -635 -575 / -575 240 / 240 Intake: Oral 240 / 240 240 / 240 Output: Urine 875 / 875 575 / 575 Stool 0 / 0 0 / 0 Other: Meal Dinner Breakfast Percent of Meal Consumed 100% 95% Weight 67.7 kg Patient Weight 10/18/17 23:59 Weight 67.7 kg - General physical appearance no distress, no pain (Mild pain with activity) - Eyes normal ocular movement - ENT atraumatic, normocephalic - Neck Neck exam: trachea midline, no venous distension - Respiratory normal expansion, normal respiratory effort, clear to auscultation - Cardiovascular Cardiovascular exam: Present: RRR - Abdomen Abdomen: Present: bowel sounds present, tympanic, tender, wound (maroon liquid ( bowel sweat noted in ostomy bag); Stoma is pink and moist.). Absent: soft ( Mild firmness) Hernia: none - Incision Incision: Present: clean and dry, intact - Integumentary no abnormal pigmentation - Neurologic normal coordination, normal sensation - Musculoskeletal normal gait, normal posture - Psychiatric oriented to time, oriented to person, oriented to place, speech is normal, memory intact - Labs 10/18/17 05:55 10/18/17 05:55 Diabetes panel 10/18/17 Range/Units 05:55 Sodium 135 L (136-145) mEq/L Potassium 4.6 (3.5-5.1) mEq/L Chloride 101 (98-107) mEq/L Carbon Dioxide 30 H (23-29) mEq/L BUN 17 (8-23) mg/dL Creatinine 1.10 (0.70-1.30) mg/dL Glucose 93 (70-105) mg/dL Calcium 8.8 (8.6-10.3) mg/dL Calcium panel 10/18/17 Range/Units 05:55 Calcium 8.8 (8.6-10.3) mg/dL Pituitary panel 10/18/17 Range/Units 05:55 Sodium 135 L (136-145) mEq/L Potassium 4.6 (3.5-5.1) mEq/L Chloride 101 (98-107) mEq/L Carbon Dioxide 30 H (23-29) mEq/L BUN 17 (8-23) mg/dL Creatinine 1.10 (0.70-1.30) mg/dL Glucose 93 (70-105) mg/dL Calcium 8.8 (8.6-10.3) mg/dL Adrenal panel 10/18/17 Range/Units 05:55 Sodium 135 L (136-145) mEq/L Potassium 4.6 (3.5-5.1) mEq/L Chloride 101 (98-107) mEq/L Carbon Dioxide 30 H (23-29) mEq/L BUN 17 (8-23) mg/dL Creatinine 1.10 (0.70-1.30) mg/dL Glucose 93 (70-105) mg/dL Calcium 8.8 (8.6-10.3) mg/dL - VTE Documentation of Mechanical Device: Intermittent pneumatic compression device Consult Discharge Plan - Plan Referrals: Ranjith Lacey DO [Primary Care Provider] - <Veronica Cannon - Last Filed: 10/18/17 22:09> Date of Encounter: 10/18/17 - Assessment and Plan (1) Chronic kidney disease (CKD) Current Visit: Yes Status: Chronic Qualifiers: Chronic kidney disease stage: stage 3 (moderate) Qualified Code(s): N18.3 - Chronic kidney disease, stage 3 (moderate) (2) HTN, goal below 130/80 Current Visit: Yes Status: Chronic (3) Mass in rectum Current Visit: Yes Status: Acute (4) 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 Current Visit: Yes Status: Chronic pathology results noted tonight, discussed with patient and daughter in law oncology consulted and spoke with Dr Washington still not passing stools, will start clears and bowel prep in am pain controlled colostomy with mucus fistula Subjective Patient reports: still having pain, pain is less, tolerating a regular diet, flatus, no bowel movement Objective Vital Signs - Last 8 Hours Temp Pulse Resp BP Pulse Ox 10/18/17 19:26 97.3 F L 76 15 170/68 96 10/18/17 15:54 97.4 F L 66 16 148/73 96 Intake and Output 10/18/17 10/18/17 10/18/17 07:59 15:59 23:59 Intake Total 240 / 240 360 / 360 Output Total 575 / 575 0 / 0 Balance -575 / -575 240 / 240 360 / 360 Intake: Oral 240 / 240 360 / 360 Output: Urine 575 / 575 0 / 0 Stool 0 / 0 Other: Meal Breakfast Dinner Percent of Meal Consumed 95% 90% Weight 67.7 kg Patient Weight 10/18/17 23:59 Weight 67.7 kg - General physical appearance no distress, no pain - Eyes PERRL, normal ocular movement - ENT normal mucosa, normocephalic - Neck Neck exam: trachea midline, no venous distension - Respiratory normal expansion, normal respiratory effort - Cardiovascular Cardiovascular exam: Present: RRR - Abdomen Abdomen: Present: bowel sounds present, soft, tender, wound - Incision Incision: Present: clean and dry, intact - Integumentary no abnormal pigmentation - Neurologic normal coordination, normal sensation - Musculoskeletal normal posture - Psychiatric oriented to time, oriented to person, memory intact - Labs 10/18/17 05:55 10/18/17 05:55 Diabetes panel 10/18/17 Range/Units 05:55 Sodium 135 L (136-145) mEq/L Potassium 4.6 (3.5-5.1) mEq/L Chloride 101 (98-107) mEq/L Carbon Dioxide 30 H (23-29) mEq/L BUN 17 (8-23) mg/dL Creatinine 1.10 (0.70-1.30) mg/dL Glucose 93 (70-105) mg/dL Calcium 8.8 (8.6-10.3) mg/dL Calcium panel 10/18/17 Range/Units 05:55 Calcium 8.8 (8.6-10.3) mg/dL Pituitary panel 10/18/17 Range/Units 05:55 Sodium 135 L (136-145) mEq/L Potassium 4.6 (3.5-5.1) mEq/L Chloride 101 (98-107) mEq/L Carbon Dioxide 30 H (23-29) mEq/L BUN 17 (8-23) mg/dL Creatinine 1.10 (0.70-1.30) mg/dL Glucose 93 (70-105) mg/dL Calcium 8.8 (8.6-10.3) mg/dL Adrenal panel 10/18/17 Range/Units 05:55 Sodium 135 L (136-145) mEq/L Potassium 4.6 (3.5-5.1) mEq/L Chloride 101 (98-107) mEq/L Carbon Dioxide 30 H (23-29) mEq/L BUN 17 (8-23) mg/dL Creatinine 1.10 (0.70-1.30) mg/dL Glucose 93 (70-105) mg/dL Calcium 8.8 (8.6-10.3) mg/dL - Attending Attestation I have personally performed a face to face evaluation on this patient. I have reviewed and agree with the care plan. History and Exam by me shows:
[2017-10-18] MEDS: Levofloxacin 250 MG/50 ML 250 MG/50 ML BAG IVPB SCH (14:54)
[2017-10-18] MEDS: Acetaminophen 325 MG TABLET PO PRN (22:22)
[2017-10-19 06:13] LABS: Eosinophils % 8.9 %; Hemoglobin 11.5 g/dL (12.9-16.9); Immature Granulocytes % 0.2 % (0-4); Lymphocytes % 16.9 %; Mean Corpuscular HGB Conc 33.8 g/dL (31.6-35.5); Mean Corpuscular Hemoglobin 32.6 pg (28.0-33.3); Mean Corpuscular Volume 96.3 fL (83.0-100.0); Mean Platelet Volume 9.4 fL (9.4-12.4); Monocytes % 11.2 %; Platelet Count 210 K/mcL (140-400); Red Blood Count 3.53 M/mcL (4.19-5.50); Segmented Neutrophils % 62.5 %
[2017-10-19 06:14] LABS: Basophils % 0.3 %; Eosinophils # 0.6 K/mcL (0.0-0.6); Lymphocytes # 1.1 K/mcL (0.6-4.6); Monocytes # 0.7 K/mcL (0.0-1.3); Neutrophils # 3.9 K/mcL (1.6-8.9)
[2017-10-19] MEDS: *HR* Heparin 5,000 UNIT/ML VIAL SQ SCH ×2 (06:15→17:58)
[2017-10-19 06:34] LABS: BUN/Creatinine Ratio 18 (6-26); Blood Urea Nitrogen 19 mg/dL (8-23); Calcium 8.7 mg/dL (8.6-10.3); Carbon Dioxide 30 mEq/L (23-29); Chloride 102 mEq/L (98-107); Glucose 92 mg/dL (70-105); Osmolality,Calculated 282 (280-300); Potassium 4.4 mEq/L (3.5-5.1); Sodium 135 mEq/L (136-145); eGFR For African Americans > 60 (> 60); eGFR For Non-African Americans > 60 (> 60)
[2017-10-19] MEDS ORDERED: Polyethylene Glycol 3350 255 GM POWDER PO ONE (08:00)
[2017-10-19] MEDS: amLODIPine 5 MG TABLET PO SCH (08:26)
[2017-10-19] MEDS ORDERED: *HR* HYDROcodone/Acet 5/325 mg TABLET PO PRN (10:43)
--- NOTE | 2017-10-19 12:50 | General Surgery Progress Note ---
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 Cannon Pathology- Specimen A: Peritoneum, biopsy: Adenocarcinoma with morphology compatible with metastatic carcinoma from carcinoma of rectum. 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 Oncology consulted and will see the patient today for evaluation Plan for A-port insertion as an outpatient- patient and family agreeable Patient with large amount of stool this morning Advance to regular diet Supportive care and pain control GI prophylaxis Ambulate hallways TID with assistance IS every 1 hour while awake Wound care consult for ostomy teaching Continue colace BID (2) Chronic kidney disease (CKD) Current Visit: Yes Status: Chronic Stable 1.10>1.07 Strict I&Os Avoid nephrotoxic medications Qualifiers: Chronic kidney disease stage: stage 3 (moderate) Qualified Code(s): N18.3 - Chronic kidney disease, stage 3 (moderate) (3) HTN, goal below 130/80 Current Visit: Yes Status: Chronic Stable Continue home medication regimen Metoprolol IV prn (4) DVT prophylaxis Current Visit: Yes Status: Acute Heparin 5,000 units SQ twice daily for DVT prophylaxis Ambulate hallways TID with assistance Subjective Patient reports: no new complaints, feels better, still having pain, pain is less, tolerating a regular diet, voiding w/o difficulty, flatus, bowel movement (via colostomy started this morning), afebrile Objective Vital Signs - Last 8 Hours Temp Pulse Resp BP Pulse Ox 10/19/17 10:40 97.5 F L 60 14 143/66 97 10/19/17 06:42 97.9 F 61 16 159/66 95 Intake and Output 10/18/17 10/19/17 10/19/17 23:59 07:59 15:59 Intake Total 360 / 360 50 / 50 480 / 480 Output Total 100 / 100 750 / 750 250 / 250 Balance 260 / 260 -700 / -700 230 / 230 Intake: IV Fluids 50 / 50 Levaquin Premix 250 MG/50 ML 50 / 50 250 mg In 50 ml @ 50 mls/hr IVPB Q24H [facility] Rx#:[id number] Oral 360 / 360 0 / 0 480 / 480 Output: Urine 0 / 0 0 / 0 0 / 0 Stool 100 / 100 750 / 750 250 / 250 Other: Meal Dinner Clear Percent of Meal Consumed 90% Stool Size Small Stool Consistency loose loose formed Stool Characteristics Normal for Patient Normal for Patient Stool Color Brown Brown Weight 67.77 kg Patient Weight 10/19/17 23:59 Weight 67.77 kg - General physical appearance well developed, no distress - Eyes normal ocular movement - ENT normal mucosa, atraumatic, normocephalic - Neck Neck exam: trachea midline - Respiratory normal respiratory effort, clear to auscultation - Cardiovascular Cardiovascular exam: Present: RRR - Abdomen Abdomen: Present: bowel sounds present, soft, distended (improving), tender ( expected post-operative tenderness), wound (Colostomy pink and moist with soft, brown stool noted) - Incision Incision: Present: clean and dry, intact - Neurologic CN 2-12 grossly intact - Musculoskeletal normal posture - Psychiatric oriented to time, oriented to person, oriented to place, speech is normal, memory intact - Labs 10/19/17 06:01 10/19/17 06:01 Diabetes panel 10/19/17 Range/Units 06:01 Sodium 135 L (136-145) mEq/L Potassium 4.4 (3.5-5.1) mEq/L Chloride 102 (98-107) mEq/L Carbon Dioxide 30 H (23-29) mEq/L BUN 19 (8-23) mg/dL Creatinine 1.07 (0.70-1.30) mg/dL Glucose 92 (70-105) mg/dL Calcium 8.7 (8.6-10.3) mg/dL Calcium panel 10/19/17 Range/Units 06:01 Calcium 8.7 (8.6-10.3) mg/dL Pituitary panel 10/19/17 Range/Units 06:01 Sodium 135 L (136-145) mEq/L Potassium 4.4 (3.5-5.1) mEq/L Chloride 102 (98-107) mEq/L Carbon Dioxide 30 H (23-29) mEq/L BUN 19 (8-23) mg/dL Creatinine 1.07 (0.70-1.30) mg/dL Glucose 92 (70-105) mg/dL Calcium 8.7 (8.6-10.3) mg/dL Adrenal panel 10/19/17 Range/Units 06:01 Sodium 135 L (136-145) mEq/L Potassium 4.4 (3.5-5.1) mEq/L Chloride 102 (98-107) mEq/L Carbon Dioxide 30 H (23-29) mEq/L BUN 19 (8-23) mg/dL Creatinine 1.07 (0.70-1.30) mg/dL Glucose 92 (70-105) mg/dL Calcium 8.7 (8.6-10.3) mg/dL - VTE Documentation of Mechanical Device: Intermittent pneumatic compression device Consult Discharge Plan - Plan Referrals: Ranjith Lacey DO [Primary Care Provider] - - Attending Attestation For this encounter, I have reviewed the [employer] or PA documentation, treatment plan, and medical decision making; and I have had face to face time with this patient. 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 Current Visit: Yes Status: Chronic Objective Vital Signs - Last 8 Hours Temp Pulse Resp BP Pulse Ox 10/19/17 10:40 97.5 F L 60 14 143/66 97 Intake and Output 10/18/17 10/19/17 10/19/17 23:59 07:59 15:59 Intake Total 360 / 360 50 / 50 600 / 600 Output Total 100 / 100 750 / 750 250 / 250 Balance 260 / 260 -700 / -700 350 / 350 Intake: IV Fluids 50 / 50 Levaquin Premix 250 MG/50 ML 50 / 50 250 mg In 50 ml @ 50 mls/hr IVPB Q24H [facility] Rx#:[id number] Oral 360 / 360 0 / 0 600 / 600 Output: Urine 0 / 0 0 / 0 0 / 0 Stool 100 / 100 750 / 750 250 / 250 Other: Meal Dinner Lunch Percent of Meal Consumed 90% 100% Stool Size Small Stool Consistency loose loose formed Stool Characteristics Normal for Patient Normal for Patient Stool Color Brown Brown Weight 67.77 kg Patient Weight 10/19/17 23:59 Weight 67.77 kg - Labs 10/19/17 06:01 10/19/17 06:01 Diabetes panel 10/19/17 Range/Units 06:01 Sodium 135 L (136-145) mEq/L Potassium 4.4 (3.5-5.1) mEq/L Chloride 102 (98-107) mEq/L Carbon Dioxide 30 H (23-29) mEq/L BUN 19 (8-23) mg/dL Creatinine 1.07 (0.70-1.30) mg/dL Glucose 92 (70-105) mg/dL Calcium 8.7 (8.6-10.3) mg/dL Calcium panel 10/19/17 Range/Units 06:01 Calcium 8.7 (8.6-10.3) mg/dL Pituitary panel 10/19/17 Range/Units 06:01 Sodium 135 L (136-145) mEq/L Potassium 4.4 (3.5-5.1) mEq/L Chloride 102 (98-107) mEq/L Carbon Dioxide 30 H (23-29) mEq/L BUN 19 (8-23) mg/dL Creatinine 1.07 (0.70-1.30) mg/dL Glucose 92 (70-105) mg/dL Calcium 8.7 (8.6-10.3) mg/dL Adrenal panel 10/19/17 Range/Units 06:01 Sodium 135 L (136-145) mEq/L Potassium 4.4 (3.5-5.1) mEq/L Chloride 102 (98-107) mEq/L Carbon Dioxide 30 H (23-29) mEq/L BUN 19 (8-23) mg/dL Creatinine 1.07 (0.70-1.30) mg/dL Glucose 92 (70-105) mg/dL Calcium 8.7 (8.6-10.3) mg/dL
--- NOTE | 2017-10-19 13:50 | Oncology Inp Consult Note ---
<Jennifer Washington S - Last Filed: 10/20/17 08:52> Date of Encounter: 10/20/17 - Data of Consult Requesting Physician: Veronica Cannon MD Primary Care Provider: Ranjith Lacey DO - Consult Narrative History of present illness: Mr. Paredes is a 82 year old male Medications and Allergies Lactobacillus Combination No.8 [Adult Probiotic] 1 cap PO DAILY 10/13/17 [ History] Polyethylene Glycol 3350 [MiraLAX Powder Bulk 17.9 Oz] 1 scoop PO DAILY [History] Pravastatin Sodium [Pravachol] 40 mg PO DAILY 10/13/17 [History] Ranitidine HCl [Zantac] 150 mg PO DAILY 10/13/17 [History] amLODIPine [Norvasc] 5 mg PO DAILY 10/13/17 [History] 3 Allergy/AdvReac Type Severity Reaction Status Date / Time Penicillins [PCN] Allergy Hives Verified 10/13/17 14:24 Oncology - Exam - Constitutional Vitals: Temp Pulse Resp BP Pulse Ox 98.1 F 65 17 125/71 95 10/20/17 05:51 10/20/17 05:51 10/20/17 05:51 10/20/17 05:51 10/20/17 05:51 Consult Discharge Plan - Plan Referrals: Ranjith Lacey DO [Primary Care Provider] - - Attending Attestation 1. Rectal carcinoma with obstruction and noncontrast CT chest abdomen and pelvis 10/13/2017 showed rectal thickening. Also 7 mm nodule right apex of lung which is nonspecific. Suboptimal study given CEA 4.6 10/13/2017 line endoscopy showed large rectal mass partially obstructing about 2 cm from anal verge 2. Diverting colostomy Dr. Cannon 10/16/2017 he is able to have good bowel movement now His hemoglobin was 13 on admission renal function liver enzymes normal Reviewed NCCN guidelines He had peritoneal deposits and biopsy of a peritoneal deposit positive for adenocarcinoma. Rectal biopsy also showed adenocarcinoma of rectum According to the AJCC eighth addition peritoneal deposit would be M1 C TX, NX, M1 C stage IV Will complete the staging with a PET scan as an outpatient He is able to maintain oral nutrition and he has not lost much weight Would start with chemotherapy Have a port placement for IV access We will use combination of oxaliplatin and Xeloda. 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 Cannon Pathology- Specimen A: Peritoneum, biopsy: Adenocarcinoma with morphology compatible with metastatic carcinoma from carcinoma of rectum. 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 He is planned for A-port insertion as an outpatient. Patient will establish care with Dr. Washington. Dr. Washington will round with patient later today to discuss treatment options per NCCN guidelines and AJCC staging. I will begin coordination with oncology navigation, arrange for outpatient PET along with follow up appointment and discussion at tumor board next week. He is tolerating a regular diet and ambulating well with minimal assist. - Data of Consult Patient: new to practice Consult date: 10/19/17 Requesting Physician: Veronica Cannon MD Primary Care Provider: Ranjith Lacey DO - Consult Narrative Reason for consult: Metastatic rectal adenocarcinoma History of present illness: Mr. Paredes is a 82 year old male with past medical history significant for HTN, GERD, hyperlipidemia, hyperkalemia, CKD and allergic rhinitis. His GI symptoms began around July of last year with lower abdominal pain and constipation unrelieved with stool softeners. Miralax induced diarrhea and he began going to the bathroom off and on all day with small bowel movements and began to experience some loss of bowel control. DUring this time he also experienced some rectal bleeding. He was referred to Dr. Cannon for consultation on 10/13/2017 and noted to have a low palpable rectal mass that felt consistent with rectal cancer. He was admitted with concern for potential obstruction and need for further workup. CT chest/abdomen/pelvis on 10/13/17 reveals diffuse mild emphysematous changes in the lungs with right upper lobe pulmonary nodule of 7 mm, wall thickening of the rectum up to the rectosigmoid junction, asymmetric at the anal verge with fullness along the posterior left rectal wall. Serosal haziness is noted consistent with proctocolitis. The patient also has severe sigmoid diverticulosis with mild pericolonic stranding and trace fluid suggesting acute diverticulitis. He had a flexible sigmoidoscopy on 10/14/2017 which found a fungating, partially obstructing, circumferential large mass at the anus and in the rectum. The mass extends about 1-2 cm from the anal verge. He underwent a Laparoscopic sigmoid colostomy with mucus fistula with Dr. Cannon on 10/16/2017 with rectal and peritoneal deposit biopsy. Preop CEA on 10/13/2017 was 4.4. Surgical pathology reveals Specimen A: Peritoneum, biopsy: Adenocarcinoma with morphology compatible with metastatic carcinoma from carcinoma of rectum. 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 Dr. Cannon discussed pathology findings with patient and patients family last evening. Oncology consulted for further treatment discussion and care coordination. Mr. Paredes lives a very active and independent lifestyle. 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 His mother from breast cancer at the age of 83, otherwise no other family history of cancer. He is a former smoker and started smoking in 6, quit in 1977. Past Med Surg Social Fam HX - Past Medical History Medical history: GERD, hyperlipidemia, hypertension Psychiatric history: no psych history - Past Surgical History Surgical History: no surgical history - Social History Smoking Status: Former smoker Smokeless Tobacco Status: No Alcohol use: none Drug use: none - Family History Mother Living Status: Age at : 83 Cause of : breast ca Hx Family Cancer: Yes (breast ca) Father Living Status: Age at : 57 Cause of : heart problems Hx Family Cardiac Disorders: Yes Constitutional: Absent: anorexia, fatigue, weakness, weight loss Eyes: Absent: change in vision Nose, mouth and throat: Absent: mouth lesions Cardiovascular: Absent: chest pain, palpitations Respiratory: Absent: cough, dyspnea Gastrointestinal: Present: as per HPI Additional comments: denies dysuria or hematuria Musculoskeletal: Present: muscle weakness Integumentary: Present: as per HPI Neurological: Absent: focal weakness, numbness, tingling Psychiatric: Absent: change in appetite Oncology - Exam - Constitutional Vitals: Temp Pulse Resp BP Pulse Ox 97.5 F L 60 14 143/66 97 10/19/17 10:40 10/19/17 10:40 10/19/17 10:40 10/19/17 10:40 10/19/17 10:40 General appearance: cooperative, no acute distress, no febrile - Head Head exam: Present: atraumatic - Respiratory Respiratory exam: Present: CTAB. Absent: respiratory distress - Cardiovascular Cardiovascular exam: Present: RRR, +S1, +S2 - GI/Abdominal Additional comments: Bowel sounds present, distended, expected post op tenderness, colostomy with soft brown stool noted in bag, incision TESTER WASTE DISPOSAL LEAKAGE w/ clive - Extremities Exam Extremities exam: Present: normal inspection. Absent: calf tenderness, pedal edema - Neurological Exam Neurological exam: Present: alert, oriented X3, no focal deficits, strengths equal and symetr throughout - Psychiatric Psychiatric exam: Present: normal affect, normal mood - Skin Skin exam: Present: normal color, warm Oncology - Results Labs: Short CBC 10/19/17 Range/Units 06:01 WBC 6.3 (4.3-11.1) K/mcL Hgb 11.5 L (12.9-16.9) g/dL Hct 34.0 L (37.5-50.1) % Plt Count 210 (140-400) K/mcL Neutrophils # 3.9 (1.6-8.9) K/mcL BMP 10/19/17 06:01 Sodium 135 L Potassium 4.4 Chloride 102 Carbon Dioxide 30 H BUN 19 Creatinine 1.07 Glucose 92 Calcium 8.7
[2017-10-19] MEDS: Acetaminophen 325 MG TABLET PO PRN ×2 (16:06→21:47)
[2017-10-20] MEDS: *HR* Heparin 5,000 UNIT/ML VIAL SQ SCH (05:33)
[2017-10-20] MEDS: amLODIPine 5 MG TABLET PO SCH (07:34)
[2017-10-20] MEDS: Acetaminophen 325 MG TABLET PO PRN (07:57)
[2017-10-20 10:46] VITALS: BP 145/66
--- NOTE | 2017-10-20 13:10 | Discharge Summary ---
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 Priority: Primary Status: Chronic - Discharge Medications Prescriptions: Docusate [Colace] 100 mg PO BID #30 capsule HYDROcodone/Acet 5/325 mg [[place] 5-325 mg] 1 tab PO Q8H PRN 7 Days #10 tab PRN Reason: Pain Home Medications: Lactobacillus Combination No.8 [Adult Probiotic] 1 cap PO DAILY 10/13/17 [ History] Polyethylene Glycol 3350 [MiraLAX Powder Bulk 17.9 Oz] 1 scoop PO DAILY [History] Pravastatin Sodium [Pravachol] 40 mg PO DAILY 10/13/17 [History] Ranitidine HCl [Zantac] 150 mg PO DAILY 10/13/17 [History] amLODIPine [Norvasc] 5 mg PO DAILY 10/13/17 [History] Docusate [Colace] 100 mg PO BID #30 capsule 10/20/17 [Rx] HYDROcodone/Acet 5/325 mg [[place] 5-325 mg] 1 tab PO Q8H PRN 7 Days #10 tab 10/20 [Rx] Allergies/Adverse Reactions: 3 Allergy/AdvReac Type Severity Reaction Status Date / Time Penicillins [PCN] Allergy Hives Verified 10/13/17 14:24 General Surgery Exam Initial Vital Signs Temp Pulse Resp BP Pulse Ox 97.6 F 80 16 165/73 97 10/13/17 14:02 10/13/17 14:02 10/13/17 14:02 10/13/17 14:02 10/13/17 14:02 - General physical appearance well developed, well nourished, no distress - Eyes PERRL, normal ocular movement - ENT normal mucosa, normocephalic - Respiratory normal expansion, normal respiratory effort - Cardiovascular Cardiovascular exam: Present: RRR - Abdomen Abdomen general surgery: Present: bowel sounds present, soft, tender ( appropriate post op tenderness) - Integumentary Integumentary general surgery: Present: warm and dry - Neurologic Present: CN 2-12 grossly intact - Musculoskeletal Present: normal gait, normal posture - Psychiatric Psychiatric general surgery: Present: A&Ox3, speech is normal Date of admission: 10/18/17 10:04 Primary care physician: Ranjith Lacey DO Consults: 10/16/17 11:13 Consult to Wound Care [CONS] Routine Reason for Consult: new colostomy with mucus fistula Time Notified: 10:20 Call Completed: No 10/18/17 18:37 Consult to Oncology [CONS] Routine Consulting Provider: On[facility] Reason for Consult: metastic adenocarcinoma of the rectum Time Notified: 18:37 Call Completed: Yes Discharging clinician: Veronica Cannon Anticipated date of discharge: 10/20/17 - Patient Status Disposition: Home, Self-Care Condition: Good Overall status at discharge: patient is progressing back to baseline - Ambulatory Orders Ambulatory Orders: PET CT skull to thigh DX/initi [PE] Time Frame: 10/26/17, Facility: [facility], Location: Radiology - Discharge Instructions Follow Up With: Ranjith Lacey DO [Primary Care Provider] - Veronica Cannon MD [Partnered Physician] - 11/18/17 10:30 am ([facility] in [place] on November 18 at 10:30 am) - Diet and Activity Activity: increase activity as tolerated (no lifting more than 20 lbs) Diet: regular diet - Hospital Course Hospital course: Mr. Paredes is a 82 year old male admitted for palpable rectal mass and symptoms consistent with obstruction. CT abd/pelvis with po and rectal contrast showed an obstructing rectal mass that extended to anal verge. Flexible sigmoidoscopy was done showing obstructing mass and biopsies were done. Pathology showed adenocarcinoma of rectum. Patient underwent a laparoscopic sigmoid colostomy with mucus fistula and biopsies of carcinomatosis on 10/16/17. Patient was started on diet which he tolerated, pain controlled with po medication. Ostomy care and teaching were done and patient was having appropriate bowel and bladder function. He was discharged home in stable condition. - Time Spent with Patient Total time spent providing and/or coordinating discharge services: Less than 30 minutes - Impressions ITS Impressions Abdomen/Pelvis CT 10/13/17 18:45 IMPRESSION: 1. Diffuse mild emphysematous changes in the lungs with right upper lobe pulmonary nodule of 7 mm. No mediastinal adenopathy. 2. Wall thickening of the rectum up to the rectosigmoid junction, asymmetric at the anal verge with fullness along the posterior left rectal wall. Serosal haziness is noted consistent with proctocolitis. The patient also has severe sigmoid diverticulosis with mild pericolonic stranding and trace fluid suggesting acute diverticulitis. 3. Bilateral inguinal hernias containing bladder on the right side and bowel on the left without strangulation. 4. Other findings as above. D/ / 10/13/2017 20:16:36 Rina Becerril MD / jessica Interpreting Provider: Rina Becerril MD Chest CT 10/13/17 18:45
--- NOTE | 2017-10-20 13:22 | Physician Discharge Referral ---
Home Health/Hosp Referral Info Transfer to: Home Health Attending Provider: Dr. Karol Cannon Provider in Charge Post Discharge: Other (Dr. Veronica Cannon) - Diagnosis (1) Mass in rectum Priority: Primary Status: Acute (2) Chronic kidney disease (CKD) Priority: Secondary Status: Chronic (3) HTN, goal below 130/80 Priority: Secondary Status: Chronic - Respiratory Orders Smoking Cessation: Smoking cessation has been advised. For more information, call the [place] Tobacco Quit Line at 3-882-CANM-NOW. - Dressing/Wound Care Site: Surgical incisions abdomen: Wash daily with soap and water. Pat dry. May cover areas with a bandaid or keep open to air. Do not put any ointments on skin. Mucus Fistula/colostomy: Change ostomy appliance every 5-7 days or as needed for leaking. See Separate printed ostomy supply prescription for further information. - Diet/Nutrition Diet/Nutrition Orders: Regular - Activity Activity Orders: Up ad yamilet - Services Needed Following services are medically necessary services: Detention Care Orders: General Surgical Discharge Instructions 1. No pushing, pulling, or lifting greater than 15 lbs for 4 weeks (depending upon procedure). 2. You may shower beginning today, but no tub baths, soaking, or swimming for 2 weeks. 3. You may resume driving when you are off narcotics and are safe to react in a car. 4. Take ibuprofen every 8 hours for discomfort. If this does not relieve discomfort, you may take the as needed Percocet. Take narcotics as directed. Do not take more narcotics then directed and do not share your narcotics with any other person. Do not drink alcohol while on narcotics. 5. Take stool softeners (Colace) or a water based laxative (Miralax) while taking narcotics. You may hold for loose stools. 6. Report any fevers greater than 100.5F, increase abdominal discomfort, drainage that looks like pus, increased redness or pain at the surgical site, or any vomiting. 7. Report any pain in the calves, shortness of breath, or rapid heartbeat. 8. Follow-up in the office as directed. 9. If you were prescribed antibiotics, do not stop them without talking to your provider. See wound care above for further information - Transfer Medications Prescriptions: Docusate [Colace] 100 mg PO BID #30 capsule HYDROcodone/Acet 5/325 mg [[place] 5-325 mg] 1 tab PO Q8H PRN 7 Days #10 tab PRN Reason: Pain Home Medications: Lactobacillus Combination No.8 [Adult Probiotic] 1 cap PO DAILY 10/13/17 [ History] Polyethylene Glycol 3350 [MiraLAX Powder Bulk 17.9 Oz] 1 scoop PO DAILY [History] Pravastatin Sodium [Pravachol] 40 mg PO DAILY 10/13/17 [History] Ranitidine HCl [Zantac] 150 mg PO DAILY 10/13/17 [History] amLODIPine [Norvasc] 5 mg PO DAILY 10/13/17 [History] Docusate [Colace] 100 mg PO BID #30 capsule 10/20/17 [Rx] HYDROcodone/Acet 5/325 mg [[place] 5-325 mg] 1 tab PO Q8H PRN 7 Days #10 tab 10/20 [Rx] Allergies/Adverse Reactions: 3 Allergy/AdvReac Type Severity Reaction Status Date / Time Penicillins [PCN] Allergy Hives Verified 10/13/17 14:24 Certification: Further, I certify that my clinical findings support that this patient is homebound (i.e. absences from home require considerable and taxing effort and are for medical reasons or faith services or infrequently or short duration when for other reasons) because: Homebound Reason: Post-surgery restriction and or conditions limit ability to leave home, Leaving home requires considerable and taxing effort due to condition Attestation: My signature below is to certify that this patient is under my care and that I, or nurse practitioner, or a physician's rn first assistant working with me, has a face-to -face encounter with this patient.
== END 2017-10-20 15:19 | disposition home or self-care (01) | DRG 330 ==
LOC: 3ANU
PROVIDERS: ADMIT Nurse Practitioner Family; ATTEND Surgery

== ENCOUNTER 2017-10-31 08:17 | Inpatient (IN) ==
--- NOTE | 2017-10-31 08:42 | Anesthesia Evaluation PreOp ---
Date of Encounter: 10/31/17 Time of Encounter: 08:40 - Past History Planned Operation: a-port Cardiac History: HTN, Hyperlipidemia Pulmonary History: Former smoker MANAGER PROGRAMS History: Denies Any Significant HX Other Medical History: Renal (CKD), Other (metastatic rectal cancer, diverting colostomy) Anesthesia History: No Prior Anesthetic Complications, Past Anesthesia (robo sigmoid colectomy with diverting colostomy) Alcohol Use: none Drug use: none Medications and Allergies Lactobacillus Combination No.8 [Adult Probiotic] 1 cap PO DAILY 10/13/17 [ History] Polyethylene Glycol 3350 [MiraLAX Powder Bulk 17.9 Oz] 1 scoop PO DAILY [History] Pravastatin Sodium [Pravachol] 40 mg PO DAILY 10/13/17 [History] Ranitidine HCl [Zantac] 150 mg PO DAILY 10/13/17 [History] amLODIPine [Norvasc] 5 mg PO DAILY 10/13/17 [History] Docusate [Colace] 100 mg PO BID #30 capsule 10/20/17 [Rx] HYDROcodone/Acet 5/325 mg [[place] 5-325 mg] 1 tab PO Q8H PRN 7 Days #10 tab 10/20 [Rx] Capecitabine [Xeloda] 3 tab PO BID #84 tablet 10/28/17 [Rx] HYDROcodone/Acet 5/325 mg [[place] 5-325 mg] 1 tab PO Q8H PRN 7 Days #10 tab 10/28 [Rx] Lidocaine/Prilocaine [Emla] 1 appl TP DAILY #30 gm 10/28/17 [Rx] Omeprazole [PriLOSEC] 20 mg PO BIDAC #30 cap 10/28/17 [Rx] Ondansetron HCl [Zofran] 4 mg PO Q4H PRN #30 tablet 10/28/17 [Rx] Prochlorperazine Maleate [Compazine] 10 mg PO Q6H PRN #30 tablet 10/28/17 [Rx] 3 Allergy/AdvReac Type Severity Reaction Status Date / Time Penicillins [PCN] Allergy Hives Verified 10/28/17 14:07 - Meds/Allergy Pre-op Review Medications Reviewed: Yes Allergies Reviewed: Yes Beta Blockers on Current Med List: No Anesthesia Exam - HEENT Pupil (Motor): EOMI Mallampati: II Teeth: Edentulous Oral Opening: Greater than 3 - MANAGER PROGRAMS LOC: Oriented MANAGER PROGRAMS Motor: Normal RUE, Normal LUE, Normal RLE, Normal LLE, Normal Face MANAGER PROGRAMS Sensory: Normal: RUE, LUE, RLE, LLE, Face - Cardiac Rhythm: Regular Murmur: None - Pulmonary Breath Sounds: bilateral Clear Respiratory Effort: Symmetrical Anesthesia Assess/Plan ASA Score: 3 Modified Francine Scale for Level of Consciousness: Cooperative, oriented, and tranquil Anesthetic Plan: MAC Monitoring Plan: Standard Monitors Recovery Plan: PACU (agrees to proceed)
[2017-10-31] MEDS ORDERED: Lidocaine -MPF 1% 2 ML VIAL ONE (08:49)
[2017-10-31] MEDS ORDERED: Clindamycin 900 MG/50 ML 900 MG/50 ML IV.SOLN IVPB ONE (09:01)
[2017-10-31] MEDS ORDERED: Plasma-Lyte A (PH 7.4) 1,000 ML IVC SCH (09:15)
[2017-10-31] MEDS ORDERED: Lidocaine -MPF 2% 2 ML VIAL ONE (09:35)
[2017-10-31] MEDS ORDERED: *HR* FentaNYL (PF) 100 MCG/2 ML VIAL ONE (09:35)
[2017-10-31] MEDS ORDERED: *HR* Propofol 200 MG/20 ML VIAL IVP ONE ×2 (09:35→10:45)
--- NOTE | 2017-10-31 09:57 | History & Physical Report ---
Date of Encounter: 10/31/17 Time of Encounter: 10:00 24 Hour HP Update - Instructions Instructions: If the History and Physical is less than 30 days old and was completed prior to A.M. admission and or procedure and has NOT been updated on calendar day of procedure please complete this update prior to performing procedure. - Update Patient reports changes in Medical Condition: No Changes in examination, assessment, or condition: No Changes in Medication: No Surgery Remains Indicated: Yes Consent for Planned Operative Procedure(s) Verified: Yes - Pre-Operative Checklist Prophylactic Antibiotic Ordered: Yes Home Medications Include Beta Taylor: No Is VTE Prophylaxis Indicated?: Yes
[2017-10-31] MEDS ORDERED: Lidocaine 1% 20 ML MDV ONE (10:09)
[2017-10-31] MEDS ORDERED: Heparin 1,000 UNITS/500 mL 500 ML ONE (10:09)
--- NOTE | 2017-10-31 11:10 | Operative Note ---
Date of procedure: 10/31/17 Pre-op diagnosis: rectal cancer Post-op diagnosis: same Procedure: left subclavian A-port placement Complications: none immediate Anesthesia: MAC, local Local Anesthetics: 0.5% Sensorcaine HCL SubQ (cc) Surgeon: Veronica Cannon Was there an prosthetic assistant present: Yes Monitoring Analyst: Ximena Chong Estimated blood loss (cc): 3 Specimen: none Condition: stable Disposition: same day Procedure in Detail: Patient was brought to the operating suite and placed supine on the operating table. Sign-in was performed and everyone was in agreement. MAC anesthesia was started by anesthesia without incident. The left arm was tucked at the patient's side. The left neck, chest, shoulder and upper arm were prepped and draped in the usual sterile fashion. Another timeout was performed and everyone was in agreement. Patient was placed in slight Trendelenburg position. A 8 mL of 0.5% Marcaine was injected subcutaneously. The finder needle was used to access the left subclavian vein. Blood return was dark and nonpulsatile. The guidewire was placed through this and the needle removed. The guidewire was attached to the drape with a hemostat. Fluoroscopy demonstrated the guidewire to be in the superior vena cava. A 15 blade was used to make a transverse incision in the skin just beneath the guidewire. Using a Bovie, the port pocket was made in the subcutaneous tissue. Any bleeding points were stopped with the Bovie. The patient was taken out of Trendelenburg. The dilator and introducer were inserted over the guidewire. The dilatorr was removed and the port catheter was placed into the sheath, which was previously flushed.. Fluoroscopy images were obtained ensuring the tip of the port catheter was in the SVC. A rubber shod was placed on the catheter to ensure no blood loss. The sheath was removed. The catheter was cut at ~23 centimeters. The port was placed on the catheter and the secured with the cap. Heparinized saline was used to flush the catheter, after withdrawal showed blood return. The port was placed into the pocket and secured to the chest wall with 2 separate 0 Nurolon stitches. The wound was copiously irrigated with sterile saline. The subcutaneous tissue was closed with 3-0 Vicryl interrupted stitches. The skin was closed with a 4-0 Monocryl running subcuticular stitch. Using a Engle needle the port was flushed with 500 units of heparin. Fluoroscopy again demonstrated appropriate port and catheter placement. Dermabond was applied to the wound and the patient was awoken in the operating suite. The patient tolerated the procedure well and was taken to PACU in stable condition where a chest x-ray will be obtained.,
--- NOTE | 2017-10-31 11:13 | Discharge Summary ---
Outpatient Proc Discharge Plan - Plan Instructions: Implanted Venous Access Port (DC) Additional Instructions: ok to shower tomorrow, no tub baths or pools for 1 week no lifting left arm above shoulder height for 1 week, then use arm normally Home Medications: Lactobacillus Combination No.8 [Adult Probiotic] 1 cap PO DAILY 10/13/17 [ History] Polyethylene Glycol 3350 [MiraLAX Powder Bulk 17.9 Oz] 1 scoop PO DAILY [History] Pravastatin Sodium [Pravachol] 40 mg PO DAILY 10/13/17 [History] Ranitidine HCl [Zantac] 150 mg PO DAILY 10/13/17 [History] amLODIPine [Norvasc] 5 mg PO DAILY 10/13/17 [History] Docusate [Colace] 100 mg PO BID #30 capsule 10/20/17 [Rx] HYDROcodone/Acet 5/325 mg [[place] 5-325 mg] 1 tab PO Q8H PRN 7 Days #10 tab 10/28 [Rx] Lidocaine/Prilocaine [Emla] 1 appl TP DAILY #30 gm 10/28/17 [Rx] Omeprazole [PriLOSEC] 20 mg PO BIDAC #30 cap 10/28/17 [Rx] Ondansetron HCl [Zofran] 4 mg PO Q4H PRN #30 tablet 10/28/17 [Rx] Prochlorperazine Maleate [Compazine] 10 mg PO Q6H PRN #30 tablet 10/28/17 [Rx] Capecitabine [Xeloda] 1,500 mg PO BID 10/31/17 [History]
[2017-10-31] MEDS ORDERED: Ipratropium/Albuterol Neb 3 ML IH SCH (12:00)
--- NOTE | 2017-10-31 14:29 | Anesthesia Evaluation Post Op ---
Date of Encounter: 10/31/17 Time of Encounter: 14:27 - Vital Signs Vital Signs: Vital Signs/O2 Sat, Most Current Temp Pulse Resp BP Pulse Ox 97.2 F L 62 16 133/65 98 10/31/17 11:50 10/31/17 13:50 10/31/17 13:50 10/31/17 13:50 10/31/17 13:50 - Lungs Lungs: Treatment Ordered (PT with 2.8 cm pneumothorax, Vital signs stable. Patient is being admitted for chest tube placement) - Airway Airway: Non-obstructed - Cardiovascular Regular Rate - Mental Status Mental Status: Alert & Oriented, Answers Appropriately - Pain Pain Scale: 0 Pain Scale used: Numeric (1 - 10) - Hydration Hydration: Tolerates oral liquids, Has not voided - Discharge PostOp Status: Transfer Patient to floor
[2017-10-31] MEDS ORDERED: Ondansetron 4 MG/2 ML VIAL IVP PRN (15:52)
[2017-10-31] MEDS: Ipratropium/Albuterol Neb 3 ML IH SCH ×3 (16:13→23:19)
[2017-10-31] MEDS: *HR* HYDROcodone/Acet 5/325 mg TABLET PO PRN ×2 (16:22→20:55)
[2017-10-31] MEDS: 0.9 % Sodium Chloride 1,000 ML IVC SCH (20:56)
[2017-11-01] MEDS: *HR* HYDROcodone/Acet 5/325 mg TABLET PO PRN ×2 (01:35→05:58)
[2017-11-01] MEDS: Ipratropium/Albuterol Neb 3 ML IH SCH ×6 (04:26→23:45)
[2017-11-01] MEDS: Famotidine 20 MG TABLET PO SCH (09:04)
[2017-11-01] MEDS: amLODIPine 5 MG TABLET PO SCH (09:05)
--- NOTE | 2017-11-01 09:29 | General Surgery Progress Note ---
<Jeimy López Ashely - Last Filed: 11/01/17 09:45> Date of Encounter: 11/01/17 Time of Encounter: 09:27 - Assessment and Plan (1) Pneumothorax Current Visit: Yes Status: Resolved Patient status post left subclavian a port placement on 10/31/2017. -Chest x-ray on 11/01/2017 demonstrate resolution of left-sided pneumothorax with indwelling small bore locking loop chest tube. -Keep chest tube on suction today. -Supplemental Oxygen. -oral pain medication and anti-emetics -Duonebs -Will continue to monitor. Qualifiers: Pneumothorax type: postprocedural Qualified Code(s): J95.811 - Postprocedural pneumothorax (2) Rectal cancer Current Visit: No Status: Acute S/P diverting colostomy and mucous fistula on 10/16/[address] Cannon. -oncology following as outpatient. (3) Chronic kidney disease (CKD) Current Visit: No Status: Chronic avoid nephrotoxic agents. -Monitor I&O's -Check AM labs Qualifiers: Chronic kidney disease stage: unspecified stage Qualified Code(s): N18.9 - Chronic kidney disease, unspecified (4) DVT prophylaxis Current Visit: No Status: Acute EPCDs, ambulation, and Heparin SQ BID -Pepcid for GI prophylaxis. Subjective Patient reports: no new complaints, feels better, pain is less, tolerating liquids well, tolerating a regular diet, voiding w/o difficulty, flatus, bowel movement, afebrile (Shortness of breath overnight. No longer short of breath. Resting comfortably. ) Objective Vital Signs - Last 8 Hours Temp Pulse Resp BP Pulse Ox 11/01/17 08:39 97.9 F 75 15 130/65 98 11/01/17 07:25 16 100 11/01/17 04:27 16 100 11/01/17 03:41 97.4 F L 63 15 128/55 96 Intake and Output 10/31/17 11/01/17 11/01/17 23:59 07:59 15:59 Intake Total 100 / 100 0 / 0 240 / 240 Output Total 551 / 551 0 / 0 120 / 120 Balance -451 / -451 0 / 0 120 / 120 Intake: Oral 100 / 100 0 / 0 240 / 240 Output: Urine 550 / 550 0 / 0 120 / 120 Wound Drainage 0 / 0 Left Anterior Chest 0 / 0 - General physical appearance well developed, no distress - Respiratory normal expansion, normal respiratory effort, clear to percussion, clear to auscultation - Cardiovascular Cardiovascular exam: Present: RRR, no murmurs/rubs/gallops - Abdomen Abdomen: Present: bowel sounds present, soft, non tender - Neurologic CN 2-12 grossly intact - Musculoskeletal normal posture - Psychiatric oriented to time, oriented to person, oriented to place, speech is normal, memory intact - VTE Documentation of Mechanical Device: Intermittent pneumatic compression device Consult Discharge Plan - Plan Instructions: Implanted Venous Access Port (DC) Additional Instructions: Home Medication List * You have been given a list of your current medications. If you have changes in your medications, update your list. * Provide a list of current medications to your primary care physician. * Carry a copy of your current medications with you in case of an emergency.Follow Up Appointment * Please call your surgeon's office within 24 hours or next business day to schedule a follow up appointment. ok to shower tomorrow, no tub baths or pools for 1 week no lifting left arm above shoulder height for 1 week, then use arm normally Referrals: Ranjith Lacey, [Primary Care Provider] - <Veronica Cannon - Last Filed: 11/01/17 16:58> Date of Encounter: 11/01/17 - Assessment and Plan (1) Pneumothorax Current Visit: Yes Status: Resolved cxr with pnx resolved, continue to -20 mm HG suction today, check cxr in am, if lung still up ok to put CT to water seal and repeat CXR in 4 hrs, if no residual pnx will pull CT continue oxygen, aerosols, IS prn pain medication VSS, good O2 sats Qualifiers: Pneumothorax type: postprocedural Qualified Code(s): J95.811 - Postprocedural pneumothorax (2) HTN, goal below 130/80 Current Visit: No Status: Chronic continue home medication Subjective Patient reports: no new complaints, feels better, pain is less, tolerating a regular diet, voiding w/o difficulty, flatus, bowel movement Objective Vital Signs - Last 8 Hours Resp Pulse Ox 11/01/17 16:50 15 99 11/01/17 11:41 15 99 Intake and Output 0211/01/17 11/01/17 07:59 15:59 23:59 Intake Total 0 / 0 360 / 360 Output Total 0 / 0 125 / 125 Balance 0 / 0 235 / 235 Intake: Oral 0 / 0 360 / 360 Output: Urine 0 / 0 120 / 120 Wound Drainage 0 / 0 5 / 5 Left Anterior Chest 0 / 0 5 / 5 Other: Meal Lunch Percent of Meal Consumed 100% - General physical appearance well developed, no distress, cachectic - Eyes PERRL, normal ocular movement - ENT normal mucosa, normocephalic - Neck Neck exam: trachea midline - Respiratory normal expansion, normal respiratory effort - Cardiovascular Cardiovascular exam: Present: RRR - Abdomen Abdomen: Present: bowel sounds present, soft, non tender - Integumentary no growths - Neurologic CN 2-12 grossly intact - Musculoskeletal normal posture - Psychiatric oriented to time, oriented to person, oriented to place, speech is normal, memory intact - Attending Attestation I examined this patient and my medical decision-making was reviewed with the Resident Physician. I agree with the documented findings, disposition and treatment plan as described except to the extent set forth below.
[2017-11-01] MEDS: *HR* Heparin 5,000 UNIT/ML VIAL SQ SCH ×2 (10:35→19:12)
[2017-11-01] MEDS: 0.9 % Sodium Chloride 1,000 ML IVC SCH (19:13)
[2017-11-02] MEDS: *HR* HYDROcodone/Acet 5/325 mg TABLET PO PRN ×2 (00:22→06:27)
[2017-11-02] MEDS: Ipratropium/Albuterol Neb 3 ML IH SCH ×7 (04:00→23:52)
[2017-11-02] MEDS: *HR* Heparin 5,000 UNIT/ML VIAL SQ SCH (06:28)
[2017-11-02 06:50] LABS: Basophils % 0.3 %; Eosinophils # 0.3 K/mcL (0.0-0.6); Eosinophils % 5.7 %; Hematocrit 35.2 % (37.5-50.1); Hemoglobin 11.7 g/dL (12.9-16.9); Immature Granulocytes % 0.3 % (0-4); Lymphocytes # 0.9 K/mcL (0.6-4.6); Lymphocytes % 16.2 %; Mean Corpuscular HGB Conc 33.2 g/dL (31.6-35.5); Mean Corpuscular Hemoglobin 32.5 pg (28.0-33.3); Mean Corpuscular Volume 97.8 fL (83.0-100.0); Mean Platelet Volume 9.4 fL (9.4-12.4); Monocytes # 0.7 K/mcL (0.0-1.3); Monocytes % 11.7 %; Neutrophils # 3.8 K/mcL (1.6-8.9); Platelet Count 283 K/mcL (140-400); Red Cell Distribution Width 13.2 % (11.5-14.5); Segmented Neutrophils % 65.8 %
[2017-11-02 07:06] LABS: BUN/Creatinine Ratio 13 (6-26); Blood Urea Nitrogen 14 mg/dL (8-23); Calcium 9.3 mg/dL (8.6-10.3); Carbon Dioxide 28 mEq/L (23-29); Chloride 100 mEq/L (98-107); Glucose 109 mg/dL (70-105); Osmolality,Calculated 279 (280-300); Sodium 134 mEq/L (136-145); eGFR For Non-African Americans > 60 (> 60)
--- NOTE | 2017-11-02 08:05 | General Surgery Progress Note ---
<Jeimy López Ashely - Last Filed: 11/02/17 09:57> Date of Encounter: 11/02/17 Time of Encounter: 08:02 - Assessment and Plan (1) Pneumothorax Current Visit: Yes Status: Resolved Patient status post left subclavian a port placement on 10/31/2017. -Chest x-ray on 11/02/2017, this morning at 8 AM, demonstrates no evidence of pneumothorax. -We will change chest tube suction to waterseal. Will obtain chest x-ray at noon, if no evidence of pneumothorax, we will discontinue the chest tube. -oral pain medication and anti-emetics -Duonebs and IS. Qualifiers: Pneumothorax type: postprocedural Qualified Code(s): J95.811 - Postprocedural pneumothorax (2) Atrial fibrillation with RVR Current Visit: Yes Status: Acute New onset atrial fibrillation with RVR as evidenced by EKG obtained 11/02/2017, this morning, at 9:25 AM. -Consult cardiology. (3) Rectal cancer Current Visit: No Status: Acute S/P diverting colostomy and mucous fistula on 10/16/[address] Cannon. -oncology following as outpatient. (4) Chronic kidney disease (CKD) Current Visit: No Status: Chronic avoid nephrotoxic agents. -Monitor I&O's -Check AM labs Qualifiers: Chronic kidney disease stage: unspecified stage Qualified Code(s): N18.9 - Chronic kidney disease, unspecified (5) DVT prophylaxis Current Visit: No Status: Acute EPCDs, ambulation, and Heparin SQ BID -Pepcid for GI prophylaxis. Subjective Patient reports: no new complaints, feels better, voiding w/o difficulty, flatus , afebrile (Patient reports resolved shortness of breath. Has no complaints. ) Objective Vital Signs - Last 8 Hours Temp Pulse Resp BP Pulse Ox 11/02/17 07:53 97.6 F 59 16 148/64 96 11/02/17 04:00 16 96 11/02/17 03:47 98.2 F 70 15 126/60 96 11/02/17 00:21 97.9 F 83 16 132/66 96 Intake and Output 11/01/17 11/02/17 11/02/17 23:59 07:59 15:59 Intake Total 550 / 550 100 / 100 Output Total 300 / 300 550 / 550 Balance 250 / 250 -450 / -450 Intake: IV Fluids 550 / 550 0.9 % Sodium Chloride 1,000 ML 550 / 550 @ 25 mls/hr IVC .Q24H [facility] Rx#: [id number] Oral 0 / 0 100 / 100 Output: Urine 300 / 300 550 / 550 Stool 0 / 0 - General physical appearance well developed, no distress - Respiratory normal expansion, normal respiratory effort, clear to percussion, clear to auscultation - Cardiovascular Cardiovascular exam: Present: tachycardia, irregular rhythm, no murmurs/rubs/ gallops - Abdomen Abdomen: Present: bowel sounds present, soft, non tender Additional Comments: Ostomy site is pink and moist. Light brown stool and evidence of flatus inside the ostomy bag. - Neurologic CN 2-12 grossly intact, normal coordination, normal sensation - Psychiatric oriented to time, oriented to person, oriented to place, speech is normal, memory intact - Labs 11/02/17 05:56 11/02/17 05:56 Diabetes panel 11/02/17 Range/Units 05:56 Sodium 134 L (136-145) mEq/L Potassium 4.0 (3.5-5.1) mEq/L Chloride 100 (98-107) mEq/L Carbon Dioxide 28 (23-29) mEq/L BUN 14 (8-23) mg/dL Creatinine 1.09 (0.70-1.30) mg/dL Glucose 109 H (70-105) mg/dL Calcium 9.3 (8.6-10.3) mg/dL Calcium panel 11/02/17 Range/Units 05:56 Calcium 9.3 (8.6-10.3) mg/dL Pituitary panel 11/02/17 Range/Units 05:56 Sodium 134 L (136-145) mEq/L Potassium 4.0 (3.5-5.1) mEq/L Chloride 100 (98-107) mEq/L Carbon Dioxide 28 (23-29) mEq/L BUN 14 (8-23) mg/dL Creatinine 1.09 (0.70-1.30) mg/dL Glucose 109 H (70-105) mg/dL Calcium 9.3 (8.6-10.3) mg/dL Adrenal panel 11/02/17 Range/Units 05:56 Sodium 134 L (136-145) mEq/L Potassium 4.0 (3.5-5.1) mEq/L Chloride 100 (98-107) mEq/L Carbon Dioxide 28 (23-29) mEq/L BUN 14 (8-23) mg/dL Creatinine 1.09 (0.70-1.30) mg/dL Glucose 109 H (70-105) mg/dL Calcium 9.3 (8.6-10.3) mg/dL - VTE Documentation of Mechanical Device: Intermittent pneumatic compression device Consult Discharge Plan - Plan Instructions: Implanted Venous Access Port (DC) Additional Instructions: Home Medication List * You have been given a list of your current medications. If you have changes in your medications, update your list. * Provide a list of current medications to your primary care physician. * Carry a copy of your current medications with you in case of an emergency.Follow Up Appointment * Please call your surgeon's office within 24 hours or next business day to schedule a follow up appointment. ok to shower tomorrow, no tub baths or pools for 1 week no lifting left arm above shoulder height for 1 week, then use arm normally Referrals: Ranjith Lacey, [Primary Care Provider] - <Veronica Cannon - Last Filed: 11/03/17 08:17> Date of Encounter: 11/02/17 - Assessment and Plan (1) Pneumothorax Current Visit: Yes Status: Resolved chest tube set to water seal, repeat CXR with continued resolved pnx, CT removed without incident Qualifiers: Pneumothorax type: postprocedural Qualified Code(s): J95.811 - Postprocedural pneumothorax (2) HTN, goal below 130/80 Current Visit: No Status: Chronic (3) Atrial fibrillation with RVR Current Visit: Yes Status: Acute Subjective Patient reports: no new complaints, feels better, tolerating a regular diet, voiding w/o difficulty, afebrile Objective Vital Signs - Last 8 Hours Temp Pulse Resp BP Pulse Ox 11/03/17 08:08 97.9 F 68 16 133/67 98 11/03/17 04:08 98.3 F 64 14 127/72 96 11/03/17 00:27 98.3 F 63 14 125/57 95 Intake and Output 11/02/17 11/03/17 11/03/17 23:59 07:59 15:59 Intake Total 0 / 0 120 / 120 Output Total 0 / 0 Balance 0 / 0 120 / 120 0 / 0 Intake: Oral 0 / 0 120 / 120 Output: Urine 0 / 0 Other: # Voids 1 1 - General physical appearance well developed, well nourished, no distress - Eyes PERRL, normal ocular movement - ENT normal mucosa, normocephalic - Respiratory normal expansion, normal respiratory effort - Cardiovascular Cardiovascular exam: Present: irregular rhythm - Abdomen Abdomen: Present: bowel sounds present, non tender - Incision Incision: Present: clean and dry, intact - Integumentary no rash, no growths - Neurologic CN 2-12 grossly intact, normal sensation - Musculoskeletal normal posture - Psychiatric oriented to time, oriented to person, oriented to place, speech is normal, memory intact - Labs 11/03/17 05:53 11/03/17 05:53 Diabetes panel 11/03/17 Range/Units 05:53 Sodium 135 L (136-145) mEq/L Potassium 4.1 (3.5-5.1) mEq/L Chloride 102 (98-107) mEq/L BUN 17 (8-23) mg/dL Creatinine 1.06 (0.70-1.30) mg/dL Glucose 98 (70-105) mg/dL Calcium 9.3 (8.6-10.3) mg/dL Calcium panel 11/03/17 Range/Units 05:53 Calcium 9.3 (8.6-10.3) mg/dL Pituitary panel 11/03/17 Range/Units 05:53 Sodium 135 L (136-145) mEq/L Potassium 4.1 (3.5-5.1) mEq/L Chloride 102 (98-107) mEq/L BUN 17 (8-23) mg/dL Creatinine 1.06 (0.70-1.30) mg/dL Glucose 98 (70-105) mg/dL Calcium 9.3 (8.6-10.3) mg/dL Adrenal panel 11/03/17 Range/Units 05:53 Sodium 135 L (136-145) mEq/L Potassium 4.1 (3.5-5.1) mEq/L Chloride 102 (98-107) mEq/L BUN 17 (8-23) mg/dL Creatinine 1.06 (0.70-1.30) mg/dL Glucose 98 (70-105) mg/dL Calcium 9.3 (8.6-10.3) mg/dL - Attending Attestation I examined this patient and my medical decision-making was reviewed with the Resident Physician. I agree with the documented findings, disposition and treatment plan as described except to the extent set forth below.
[2017-11-02] MEDS: amLODIPine 5 MG TABLET PO SCH (08:55)
[2017-11-02] MEDS: Famotidine 20 MG TABLET PO SCH (08:55)
--- NOTE | 2017-11-02 10:44 | Cardiology Consult Note ---
Date of Encounter: 11/02/17 Time of Encounter: 10:37 Assessment and Plan (1) Atrial fibrillation with RVR Current Visit: Yes Status: Acute Chadsvasc 3 so AC is indicated for stroke risk reduction. Colon CA and upcoming chemotherapy (possible lower platelets) are concerning for risk of bleed. Eliquis if okay with oncology/surgery. Patient may onlu be a candidate for ASA which would place him at higher risk for stroke. Will also start on low dose metoprolol 25 mg BID for rate control> ECHO if not done in last 3 months with an OP stress test is also reasonable. Discussion w patient/family: The assessment and plan as outlined above was discussed with the patient and/or family members who expressed understanding and agreement. All questions were answered. Thank you for involving us in the care of your patient. Please call with any questions. History of Present Illness Consult date: 11/02/17 Consult reason: Afib new onset Chief complaint: Fluttering in my chest History of present illness: Mr. Paredes is a 82 year old male with h/o HTN, colon CA who presents with afib after placement of chest tube for a pneumothorax. Patient states has felt this fluttering/skipped beat sensation in the past also, This may represent PAF with a ChadsVasc score of 3 with a risk of stroke of 3.2%/year. We do recommend AC for stroke risk reduction and a BB for rate control. He currently is resting comfortably not complaining of any associated symtpoms to his afib such as CP, SOB, LIVE, orthopnea or PND. He also denies presyncope or syncope. I also discussed the possibility of a NST as an OP to be arranged with his PCP. A NOAC such as eliquis would be recommended to reduce his risk of stroke however with the start of chemotherapy and possibility of lowering his platlets along with the risk of colon bleeds due to his colon CA will ask Oncology for there recommendations as to his risk of bleed Past Med Surg Social Fam HX - Past Medical History Medical history: cancer, GERD, hyperlipidemia, hypertension Psychiatric history: no psych history - Past Surgical History Surgical History: no surgical history - Social History Smoking Status: Never smoker Smokeless Tobacco Status: No Alcohol use: none Drug use: none - Family History Mother Living Status: Hx Family Cancer: Yes (breast ca) Father Living Status: Hx Family Cardiac Disorders: Yes Medications and Allergies Lactobacillus Combination No.8 [Adult Probiotic] 1 cap PO DAILY 10/13/17 [ History] Polyethylene Glycol 3350 [MiraLAX Powder Bulk 17.9 Oz] 1 scoop PO DAILY [History] Pravastatin Sodium [Pravachol] 40 mg PO DAILY 10/13/17 [History] Ranitidine HCl [Zantac] 150 mg PO DAILY 10/13/17 [History] amLODIPine [Norvasc] 5 mg PO DAILY 10/13/17 [History] Docusate [Colace] 100 mg PO BID #30 capsule 10/20/17 [Rx] HYDROcodone/Acet 5/325 mg [[place] 5-325 mg] 1 tab PO Q8H PRN 7 Days #10 tab 10/28 [Rx] Lidocaine/Prilocaine [Emla] 1 appl TP DAILY #30 gm 10/28/17 [Rx] Omeprazole [PriLOSEC] 20 mg PO BIDAC #30 cap 10/28/17 [Rx] Ondansetron HCl [Zofran] 4 mg PO Q4H PRN #30 tablet 10/28/17 [Rx] Prochlorperazine Maleate [Compazine] 10 mg PO Q6H PRN #30 tablet 10/28/17 [Rx] Capecitabine [Xeloda] 1,500 mg PO BID 10/31/17 [History] 3 Allergy/AdvReac Type Severity Reaction Status Date / Time Penicillins [PCN] Allergy Hives Verified 10/31/17 08:47 All Systems Review: The remainder of the systems were reviewed and are negative Physical Examination Vital Signs, Last 4 Hours Temp Pulse Resp BP Pulse Ox 11/02/17 07:53 97.6 F 59 16 148/64 96 General: No Apparent Distress HEENT: Atraumatic, Normocephaly, Mucus Membranes Moist Neck: No JVD, Normal carotid pulses Cardiac: Reg Rate and Rhythm, Normal S1 and S2, No Murmur Lungs: Normal Breath Sounds, No Wheeze, Rales, Rhonchi Neuro: Alert and responsive, No focal deficits noted Abdomen: Soft, Non-Tender Skin: No rashes noted on visualized skin Musculoskeletal: No Chest Wall Tenderness Extremities: No Clubbing, No Cyanosis, No Edema, Normal Pulses Results 11/02/17 05:56 11/02/17 05:56 Lab Results 11/02/17 11/02/17 05:56 05:56 WBC 5.8 Hgb 11.7 L Hct 35.2 L Plt Count 283 Sodium 134 L Potassium 4.0 Chloride 100 Carbon Dioxide 28 BUN 14 Creatinine 1.09 Glucose 109 H Calcium 9.3 Consult Discharge Plan - Plan Instructions: Implanted Venous Access Port (DC) Additional Instructions: Home Medication List * You have been given a list of your current medications. If you have changes in your medications, update your list. * Provide a list of current medications to your primary care physician. * Carry a copy of your current medications with you in case of an emergency.Follow Up Appointment * Please call your surgeon's office within 24 hours or next business day to schedule a follow up appointment. ok to shower tomorrow, no tub baths or pools for 1 week no lifting left arm above shoulder height for 1 week, then use arm normally Referrals: Ranjith Lacey, DO [Primary Care Provider] -
--- NOTE | 2017-11-02 13:32 | Event Note ---
Date of Encounter: 11/02/17 Time of Encounter: 13:30 Discussed the plan with cardiology moving forward. Orders entered for Metoprolol 25mg BID and Eliquis 5mg BID. Will perform and [place] check for Eliquis. Cardiology recommends observing the patient until tomorrow morning before discharging to home. Cardiology recommended outpatient echo and follow- up with either PCP or cardiology. CXR shows no evidence of residual pneumothorax. Chest tube removed without difficulty and occlusive dressing applied. The patient tolerated well.
--- NOTE | 2017-11-02 14:51 | Oncology Inp Consult Note ---
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 Washington. He was given written and verbal education on common and less common side effects related to Oxaliplatin, 5-FU and Avastin along with information on side effects to report, which side effects to report immediately/when to present to ER and information on supportive care for expected side effects. He was given prescriptions for supportive medications including prilosec, EMLA cream, compazine and zofran. He was educated on safety precautions associated with chemotherapy treatments. Specific side effects related to the above treatments such as nausea, vomiting, diarrhea, neuropathy (neuropathy symptoms which can be triggered by cold temperature), symptoms related to hand foot syndrome (PPE), cytopenias, hypertension, GI bleed, mucositis, loss of appetite, among other side effects were discussed in detail at today's visit. All questions were answered to the best of my ability. The patient and patients family verbalized understanding of the education presented at today's visit. Shall further questions arise following today's visit or while reading printed information, they were encouraged to please bring these questions to cancer center team and any upcoming appointment. Dr. Washington is planning to follow up with patient prior to initiating treatment. Will arranged for close follow up with Dr. Washington this week, he will likely plan to start treatment early the following week. conference services manager were also sent communication regarding plans for home 5-FU infusion. Treatment Intent palliative Number of cycles: 12 Repeated every 2 weeks Oxaliplatin 70 mg/m IV day 1 5-FU bolus 200 mg/m with leucovorin 200 mg/m 1 5-FU 2400 mg/m over 46 hours Avastin 5 mg per KG IV day 1. (Start from Cycle 2) We will also consider chemoradiation to the rectum at some point He has an appointment with Dr. Moran next week for radiation consideration in the future - Data of Consult Patient: known to practice within the last 3 years Consult date: 11/02/17 Requesting Physician: Veronica Cannon MD Primary Care Provider: Ranjith Lacey, DO - Consult Narrative Reason for consult: rectal carcinoma, chemo education History of present illness: Mr. Paredes is a 82 year old male with oncologic history significant for newly diagnosed rectal carcinoma with obstruction. Diverting colostomy Dr. Cannon 10/16. He had peritoneal deposits and biopsy of a peritoneal deposit positive for adenocarcinoma. Rectal biopsy also showed adenocarcinoma of rectum According to the AJCC eighth addition peritoneal deposit would be M1 C TX, NX, M1 C stage IV. PET scan 10/26/2017 showed rectal mass and perirectal lymph nodes. Did not show any major liver lesions. No major activity in 7 cm lung nodule He had a port placement for IV access through Dr. Cannon on 10/31/2017 left chest wall. He had pneumothorax after the procedure which improved with chest tube which was removed during my visit today, he is doing well and planned for discharge home tomorrow. He was planned for chemo education today, however, given his hospitalization this was performed in house. Xeloda not well covered with high copay, patient is planned to instead pursue home 5-FU infusions- He is planned to start FOLFOX next week and add Avastin from cycle 2 due to recent surgery. He also has new onset a-fib and has been started on anticoagulation. Past Med Surg Social Fam HX - Past Medical History Medical history: cancer, GERD, hyperlipidemia, hypertension Psychiatric history: no psych history - Past Surgical History Surgical History: no surgical history - Social History Smoking Status: Never smoker Smokeless Tobacco Status: No Alcohol use: none Drug use: none - Family History Mother Living Status: Hx Family Cancer: Yes (breast ca) Father Living Status: Hx Family Cardiac Disorders: Yes Medications and Allergies Lactobacillus Combination No.8 [Adult Probiotic] 1 cap PO DAILY 10/13/17 [ History] Polyethylene Glycol 3350 [MiraLAX Powder Bulk 17.9 Oz] 1 scoop PO DAILY [History] Pravastatin Sodium [Pravachol] 40 mg PO DAILY 10/13/17 [History] amLODIPine [Norvasc] 5 mg PO DAILY 10/13/17 [History] Docusate [Colace] 100 mg PO BID #30 capsule 10/20/17 [Rx] HYDROcodone/Acet 5/325 mg [[place] 5-325 mg] 1 tab PO Q8H PRN 7 Days #10 tab 10/28 [Rx] Lidocaine/Prilocaine [Emla] 1 appl TP DAILY #30 gm 10/28/17 [Rx] Omeprazole [PriLOSEC] 20 mg PO BIDAC #30 cap 10/28/17 [Rx] Ondansetron HCl [Zofran] 4 mg PO Q4H PRN #30 tablet 10/28/17 [Rx] Prochlorperazine Maleate [Compazine] 10 mg PO Q6H PRN #30 tablet 10/28/17 [Rx] Apixaban [Eliquis] 5 mg PO BID #60 tablet 11/03/17 [Rx] Metoprolol [Lopressor] 25 mg PO BID #60 tablet 11/03/17 [Rx] 3 Allergy/AdvReac Type Severity Reaction Status Date / Time Penicillins [PCN] Allergy Hives Verified 11/04/17 13:07 Constitutional: Present: weakness. Absent: anorexia, fatigue, fever(s), weight loss Cardiovascular: Absent: chest pain, palpitations Respiratory: Present: as per HPI Additional comments: dyspnea upon presentation secondary to pneumothorax which has since resolved Gastrointestinal: Present: as per HPI, bloating. Absent: abdominal pain, nausea , vomiting Additional comments: denies dysuria or hematuria Musculoskeletal: Absent: numbness, tingling Integumentary: Absent: wounds Neurological: Absent: focal weakness, frequent falls Hematologic/Lymphatic: Present: as per HPI Oncology - Exam - Constitutional Vitals: Temp Pulse Resp BP Pulse Ox 97.5 F L 92 15 120/54 96 11/02/17 11:42 11/02/17 11:42 11/02/17 11:42 11/02/17 11:42 11/02/17 11:42 General appearance: cooperative, no acute distress, no febrile - Head Head exam: Present: atraumatic - Respiratory Respiratory exam: Present: CTAB. Absent: respiratory distress - Cardiovascular Cardiovascular exam: Present: irregular rhythm - GI/Abdominal GI/Abdominal exam: Present: distended, normal bowel sounds, soft. Absent: tenderness Additional comments: no stool output in colostomy presently, patients states he has had little to no oral intake since his port placement - Extremities Exam Extremities exam: Present: normal inspection. Absent: calf tenderness - Neurological Exam Neurological exam: Present: alert, oriented X3, no focal deficits, strengths equal and symetr throughout - Psychiatric Psychiatric exam: Present: normal affect, normal mood - Skin Skin exam: Present: normal color, warm Oncology - Results Labs: Short CBC 11/02/17 Range/Units 05:56 WBC 5.8 (4.3-11.1) K/mcL Hgb 11.7 L (12.9-16.9) g/dL Hct 35.2 L (37.5-50.1) % Plt Count 283 (140-400) K/mcL Neutrophils # 3.8 (1.6-8.9) K/mcL BMP 11/02/17 05:56 Sodium 134 L Potassium 4.0 Chloride 100 Carbon Dioxide 28 BUN 14 Creatinine 1.09 Glucose 109 H Calcium 9.3 Consult Discharge Plan - Plan Instructions: Atrial Fibrillation (DC), Implanted Venous Access Port (DC) Additional Instructions: Home Medication List * You have been given a list of your current medications. If you have changes in your medications, update your list. * Provide a list of current medications to your primary care physician. * Carry a copy of your current medications with you in case of an emergency.Follow Up Appointment * Please call your surgeon's office within 24 hours or next business day to schedule a follow up appointment. -Ok to shower beginning 11/03/2017. -No tub baths or soaking in pool or hot tub for one week -no lifting left arm above shoulder height for one week, then you may usurer arm normally -return to the hospital for any chest pain, shortness of breath, lightheadedness , or dizziness. -Complete your echocardiogram as recommended. If you have not received a phone call from the Central scheduling department within 2 weeks, call [phone] and ask to schedule the appointment. -Keep your follow-up with the chronometer tester. -Record any episodes of feelings of racing or fluttering heartbeat, date and time it occurred and how long it lasted as well as the symptoms that you experience associated with it such as shortness of breath or fatigue. Referrals: Veronica Cannon MD [Partnered Physician] - 11/18/17 10:30 am Nichelle Sexton CNP [Partnered Physician] - 12/02/17 2:00 pm (For new onset versus PAS with RVR. Patient states "heart flutters all the time I just didn't tell anybody." 30 day supply of eloquence provided. Metoprolol initiated. Patient has never had any cardiac workup.) Ranjith Lacey, [Primary Care Provider] - Prescriptions: Apixaban [Eliquis] 5 mg PO BID #60 tablet Metoprolol [Lopressor] 25 mg PO BID #60 tablet
[2017-11-02] MEDS: Apixaban 5 MG TABLET PO SCH (20:06)
[2017-11-03] MEDS: Ipratropium/Albuterol Neb 3 ML IH SCH ×2 (03:16→07:55)
[2017-11-03] MEDS: *HR* HYDROcodone/Acet 5/325 mg TABLET PO PRN (04:08)
[2017-11-03 06:19] LABS: Basophils % 0.5 %; Eosinophils # 0.5 K/mcL (0.0-0.6); Eosinophils % 7.8 %; Hematocrit 35.3 % (37.5-50.1); Hemoglobin 11.7 g/dL (12.9-16.9); Immature Granulocytes % 0.2 % (0-4); Lymphocytes # 0.9 K/mcL (0.6-4.6); Lymphocytes % 14.8 %; Mean Corpuscular HGB Conc 33.1 g/dL (31.6-35.5); Mean Corpuscular Hemoglobin 32.3 pg (28.0-33.3); Mean Corpuscular Volume 97.5 fL (83.0-100.0); Mean Platelet Volume 9.3 fL (9.4-12.4); Monocytes # 0.7 K/mcL (0.0-1.3); Neutrophils # 3.9 K/mcL (1.6-8.9); Platelet Count 266 K/mcL (140-400); Red Blood Count 3.62 M/mcL (4.19-5.50); Segmented Neutrophils % 65.7 %
[2017-11-03 07:03] LABS: BUN/Creatinine Ratio 16 (6-26); Blood Urea Nitrogen 17 mg/dL (8-23); Calcium 9.3 mg/dL (8.6-10.3); Chloride 102 mEq/L (98-107); Glucose 98 mg/dL (70-105); Osmolality,Calculated 282 (280-300); Potassium 4.1 mEq/L (3.5-5.1); Sodium 135 mEq/L (136-145); eGFR For Non-African Americans > 60 (> 60)
[2017-11-03 08:09] VITALS: BP 133/67
[2017-11-03] MEDS: amLODIPine 5 MG TABLET PO SCH (08:21)
[2017-11-03] MEDS: Famotidine 20 MG TABLET PO SCH (08:21)
[2017-11-03] MEDS: Apixaban 5 MG TABLET PO SCH (08:21)
--- NOTE | 2017-11-03 08:32 | Discharge Summary ---
- NOTES TO OUTPATIENT PROVIDER Notes to Outpatient Provider: Patient had new onset Atrial Fibrilliation with RVR (unclear etiology as patient states "my heart flutters all the time, I just didn't tell anyone"). 30-day supply Eliquis and metoprolol were initiated. Outpatient echo ordered. Orders not resulted at time of discharge: Pending orders 10/31/17 10:42 XR fluoro guide [XR] Routine 11/03/17 05:53 BMP [Basic Metabolic Panel] AM 0400 11/04/17 04:00 BMP [Basic Metabolic Panel] AM 0400 Complete Blood Count [HEME] AM 0400 11/05/17 04:00 BMP [Basic Metabolic Panel] AM 0400 Complete Blood Count [HEME] AM 0400 11/06/17 04:00 BMP [Basic Metabolic Panel] AM 0400 Complete Blood Count [HEME] AM 0400 11/07/17 04:00 BMP [Basic Metabolic Panel] AM 0400 Complete Blood Count [HEME] AM 0400 Date of Encounter: 11/03/17 Time of Encounter: 08:32 - Discharge Diagnosis (1) Pneumothorax Priority: Primary Status: Resolved Qualifiers: Pneumothorax type: postprocedural Qualified Code(s): J95.811 - Postprocedural pneumothorax (2) Atrial fibrillation with RVR Priority: Primary Status: Acute Comments: New onset 10/2017 (3) Rectal cancer Priority: Secondary Status: Acute (4) Chronic kidney disease (CKD) Priority: Secondary Status: Chronic Qualifiers: Chronic kidney disease stage: unspecified stage Qualified Code(s): N18.9 - Chronic kidney disease, unspecified General Surgery Exam Initial Vital Signs Temp Pulse Resp BP Pulse Ox 97.5 F L 62 18 144/67 97 10/31/17 08:59 10/31/17 08:59 10/31/17 08:59 10/31/17 08:59 10/31/17 08:59 - General physical appearance well developed, well nourished, no distress, no pain - Eyes normal ocular movement - ENT atraumatic, normocephalic - Neck trachea midline, no venous distension - Respiratory normal expansion, normal respiratory effort, clear to auscultation - Cardiovascular Cardiovascular exam: Present: RRR, murmurs - Abdomen Abdomen general surgery: Present: bowel sounds present, soft, non tender - Incision Incision: Present: clean and dry, intact - Integumentary Integumentary general surgery: Present: warm and dry, no abnormal pigmentation - Neurologic Present: CN 2-12 grossly intact, normal coordination, normal sensation - Musculoskeletal Present: normal gait, normal posture - Psychiatric Psychiatric general surgery: Present: A&Ox3, appropriate, oriented to person, oriented to place, oriented to time, speech is normal, memory intact - Hospital Course Hospital course: Mr. Paredes is a 82 year old male who presented on 10/31/2017 for a left atrial port placement for planned chemotherapy. His procedure was complicated by a postprocedural pneumothorax. He was treated with a pigtailed chest tube to section for 48 hours and supplemental oxygen. The pneumothorax resolved without complication. Online 11/02/2017 the patient was noted to have new onset atrial fibrillation with RVR. Patient states that he has the same type of heart flatters at home quite frequently but had not reported them to anyone else. He has not had any cardiovascular work up. He was recommended to start eliquis 5 mg BOD and metoprolol 25 mg BID, and follow-up with cardiology. He is currently in sinus Michael rhythm, ambulating avoiding without difficulty, denies shortness of breath in his lung sounds are clear. We will begin discharge planning to home with a follow-up in the surgery office on November 18, with the cardiology [employer]AME on 12/02, and orders for an outpatient echocardiogram to be completed prior to his cardiology appointment. - Time Spent with Patient Total time spent providing and/or coordinating discharge services: - Discharge Medications Prescriptions: Apixaban [Eliquis] 5 mg PO BID #60 tablet Metoprolol [Lopressor] 25 mg PO BID #60 tablet Home Medications: Lactobacillus Combination No.8 [Adult Probiotic] 1 cap PO DAILY 10/13/17 [ History] Polyethylene Glycol 3350 [MiraLAX Powder Bulk 17.9 Oz] 1 scoop PO DAILY [History] Pravastatin Sodium [Pravachol] 40 mg PO DAILY 10/13/17 [History] Ranitidine HCl [Zantac] 150 mg PO DAILY 10/13/17 [History] amLODIPine [Norvasc] 5 mg PO DAILY 10/13/17 [History] Docusate [Colace] 100 mg PO BID #30 capsule 10/20/17 [Rx] HYDROcodone/Acet 5/325 mg [[place] 5-325 mg] 1 tab PO Q8H PRN 7 Days #10 tab 10/28 [Rx] Lidocaine/Prilocaine [Emla] 1 appl TP DAILY #30 gm 10/28/17 [Rx] Omeprazole [PriLOSEC] 20 mg PO BIDAC #30 cap 10/28/17 [Rx] Ondansetron HCl [Zofran] 4 mg PO Q4H PRN #30 tablet 10/28/17 [Rx] Prochlorperazine Maleate [Compazine] 10 mg PO Q6H PRN #30 tablet 10/28/17 [Rx] Capecitabine [Xeloda] 1,500 mg PO BID 10/31/17 [History] Apixaban [Eliquis] 5 mg PO BID #60 tablet 11/02/17 [Rx] Apixaban [Eliquis] 5 mg PO BID #60 tablet 11/03/17 [Rx] Metoprolol [Lopressor] 25 mg PO BID #60 tablet 11/03/17 [Rx] Allergies/Adverse Reactions: 3 Allergy/AdvReac Type Severity Reaction Status Date / Time Penicillins [PCN] Allergy Hives Verified 10/31/17 08:47 Date of admission: 11/02/17 16:19 Primary care physician: Ranjith Lacey DO Consults: 10/31/17 15:52 Consult to Interventional Radiology [CONS] Stat Consulting Provider: Radiology Interventional Cols Reason for Consult: Chest tube placement for pneumothorax s/p port placement Call Completed: Yes 11/02/17 09:28 Consult to Cardiology [CONS] Routine Comment: Consulting Provider: Cardiology Iesha Reason for Consult: new onset atrial fibrillation with RVR Call Completed: No Discharging clinician: Veronica Cannon (Martha Kasper) Anticipated date of discharge: 11/03/17 Labs on day of discharge: Labs from last 24 hours 11/03/17 11/03/17 05:53 05:53 WBC 6.0 RBC 3.62 L Hgb 11.7 L Hct 35.3 L MCV 97.5 MCH 32.3 MCHC 33.1 RDW 13.0 Plt Count 266 MPV 9.3 L Immature Gran % 0.2 Seg Neutrophils % 65.7 Lymphocytes % 14.8 Monocytes % 11.0 Eosinophils % 7.8 Basophils % 0.5 Neutrophils # 3.9 Lymphocytes # 0.9 Monocytes # 0.7 Eosinophils # 0.5 Basophils # 0.0 Sodium 135 L Potassium 4.1 Chloride 102 BUN 17 Creatinine 1.06 Est GFR ( Amer) > 60 Est GFR (Non-Af Amer) > 60 BUN/Creatinine Ratio 16 Glucose 98 Calculated Osmolality 282 Calcium 9.3 - Impressions ITS Impressions Chest X-Ray 10/31/17 00:00 IMPRESSION: Moderate left apical pneumothorax measuring up to 2.8 cm in thickness. Critical results were called by Dr. Stephen Santos MD to ÓSCAR Moreno on 10/31/2017 at 11:26. D/ / Stephen Santos MD / Stephen Santos MD Interpreting Provider: Stephen Santos MD Needle Aspiration CT 10/31/17 00:00 IMPRESSION: Successful CT guided placement of a left chest tube D/ / Aryan Martinez MD / Aryan Martinez MD Interpreting Provider: Aryan Martinez MD Chest X-Ray 10/31/17 15:00 IMPRESSION: Moderate-sized left pneumothorax, increased in size from prior exam. D/ / Bentley Chamorro MD / Bentley Chamorro MD Interpreting Provider: Bentley Chamorro MD Chest X-Ray 11/01/17 08:00 IMPRESSION: Resolve left-sided pneumothorax with indwelling small bore locking loop chest tube. D/ / Carlos Landeros MD / Carlos Landeros MD Interpreting Provider: Carlos Landeros MD Chest X-Ray 11/02/17 08:00 IMPRESSION: Indwelling small bore chest tube in the left apex, with no pneumothorax identified. Left-sided chest tube with the tip in the superior vena cava. D/ / Carlos Landeros MD / Carlos Landeros MD Interpreting Provider: Carlos Landeros MD Chest X-Ray 11/02/17 12:00 IMPRESSION: Stable chest. No appreciable pneumothorax on the left identified. D/ / 11/02/2017 13:06:17 Kelvin Humphreys MD / ghislaine Interpreting Provider: Kelvin Humphreys MD - Patient Status Disposition: Home, Self-Care Condition: Good Functional capacity at discharge: independent ambulation Overall status at discharge: patient is progressing back to baseline - Discharge Instructions Instructions: Atrial Fibrillation (DC), Implanted Venous Access Port (DC) Follow Up With: Ranjith Lacey DO [Primary Care Provider] - Nichelle Sexton CNP [Partnered Physician] - 12/02/17 2:00 pm (For new onset versus PAS with RVR. Patient states "heart flutters all the time I just didn't tell anybody." 30 day supply of eloquence provided. Metoprolol initiated. Patient has never had any cardiac workup.) Veronica Cannon MD [Partnered Physician] - 11/18/17 10:30 am Additional Instructions: Home Medication List * You have been given a list of your current medications. If you have changes in your medications, update your list. * Provide a list of current medications to your primary care physician. * Carry a copy of your current medications with you in case of an emergency.Follow Up Appointment * Please call your surgeon's office within 24 hours or next business day to schedule a follow up appointment. -Ok to shower beginning 11/03/2017. -No tub baths or soaking in pool or hot tub for one week -no lifting left arm above shoulder height for one week, then you may usurer arm normally -return to the hospital for any chest pain, shortness of breath, lightheadedness , or dizziness. -Complete your echocardiogram as recommended. If you have not received a phone call from the Central scheduling department within 2 weeks, call [phone] and ask to schedule the appointment. -Keep your follow-up with the disease case manager rn. -Record any episodes of feelings of racing or fluttering heartbeat, date and time it occurred and how long it lasted as well as the symptoms that you experience associated with it such as shortness of breath or fatigue. - Diet and Activity Activity: increase activity as tolerated Diet: advance to your usual diet
[2017-11-03 10:14] LABS: Carbon Dioxide 27 mEq/L (23-29)
--- NOTE | 2017-11-04 10:34 | Electrocardiograph Report ---
[place] [id number] Test Date: 2017-11-02 Pat Name: Aryan Paredes Department: [id number] Room: 3A Gender: M Resource Management Planner: MARIVEL : 1935 Requested By: Veronica Cannon Order Number: [id number] Reading MD: Jose Avelar DO Measurements Intervals [place] Rate: 106 P: IN: 0 QRS: 38 QRSD: 90 T: 76 QT: 324 QTc: 386 Interpretive Statements ATRIAL FIBRILLATION WITH RAPID VENTRICULAR RESPONSE MINIMAL VOLTAGE CRITERIA FOR LVH, CONSIDER NORMAL VARIANT NONSPECIFIC ST & T-WAVE ABNORMALITY Electronically Signed On 11-04-2017 10:33:18 EST by Jose Avelar DO
== END 2017-11-03 10:45 | disposition home or self-care (01) | DRG 200 ==
LOC: 3ANU 08:17 → SAMDAY 08:17
PROVIDERS: ADMIT Surgery; ATTEND Surgery